=== PATIENT | female | born 1950 | race African-American/Black ===

== ENCOUNTER 2024-04-09 09:51 | Outpatient (AMB) | payer BC, SELFPAY ==
--- NOTE | 2024-04-09 09:54 | MHC.PC.OV ---
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 Stud Master/Mistress Required: No Is last menstrual period known: No Post menopausal: No Patient : No Allergies acetaminophen [From Percocet] Adverse Reaction (Severe, Verified 04/09/24 09:57) Nausea and Vomiting oxycodone [From Percocet] Adverse Reaction (Severe, Verified 04/09/24 09:57) Nausea and Vomiting Tobacco use date assessed: 04/09/24 Fall risk assessment: No Falls in past year Last assessed Fall Risk: 04/09/24 Dental Screening Dental Screen Date: 04/09/24 Did you have a dental visit in the last 12 months?: Yes Did you have a dental problem in the last 6 months where you did not have access to dental care?: No Was dental information given to patient?: Patient has dentist HPI HPI Comments History of Present Illness Details This is a 73-year-old female with a past medical history of hypothyroidism, anxiety, hyperlipidemia, prediabetes, hypertension, morbid obesity and obstructive sleep apnea presenting to [facility]. Prediabetes, obesity-on semaglutide 1 mg once weekly. She tolerates this. She was unable to bring up her last set of labs from September on her phone. She says her A1c was good at that time. She is also cooking her own meals at home. She eats a lot of vegetables and tries to avoid carbs like rice. Hypertension-patient says her blood pressure is always higher in office. Today it is 152/84. She denies symptoms. She is compliant with her medication regimen which includes hydrochlorothiazide, verapamil and losartan. She is a nonsmoker. Patient says she has been diagnosed with a heart murmur, and she had an echocardiogram last year. She remembers being told everything looked okay and to have another echocardiogram in 2-3 years for monitoring. Anxiety-prescribed clonidine 0.1 mg twice daily. She says it helps to alleviate her anxiety. She is not interested in a behavioral health evaluation at this time. Hypothyroidism compliant with levothyroxine 50 mcg daily. JAIMIE-she is very compliant with her CPAP, and she needs a referral to sleep Medicine. Drinks ETOH rarely. She reports being up-to-date with immunizations. She signed a release for her records. She is going to double check with the pharmacy about her COVID-19 vaccine status and tetanus immunization. Dr. Ch is her squilgeer She had a mammogram in June. Patient said she had a colonoscopy last year. ROS: Constitutional: No unexplained weight loss, fever, chills, fatigue or night sweats. Eyes: No vision changes, blurry vision, double vision Respiratory: No shortness of breath, cough or sputum production. Cardiovascular: No chest pain, chest pressure or chest discomfort. No palpitations or pedal edema. Gastrointestinal: No anorexia, nausea, vomiting or diarrhea. No abdominal pain Neurologic: No headache, dizziness, syncope Endocrine: No cold or heat intolerance. No polyuria or polydipsia. Psychiatric: No SI/HI. Physical exam: Constitutional: Alert, in no distress. Head: Normocephalic. Eyes: Pupils are equal, round and reactive to light. Extraocular muscles intact. Neck: Supple, Full range of motion. No lymphadenopathy. Respiratory: Clear to auscultation. Cardiovascular: S1 S2 regular. 2/6 systolic murmur Extremities: Warm and well perfused. No clubbing, cyanosis or edema. Psychiatric: Normal mood and affect [facility] Medical History (Updated 04/09/24 @ 13:47 by DEIRDRE Jain) Heart murmur Hypothyroidism Anxiety Pure hypercholesterolemia Essential hypertension Prediabetes Insulin resistance Morbid obesity JAIMIE (obstructive sleep apnea) Family History (Updated 04/09/24 @ 10:40 by DEIRDRE Jain) Father Alcohol abuse Throat cancer Brother Alcohol abuse Throat cancer Sister Breast cancer Social History Housing: House Patient Tobacco Use Status: Never used Tobacco e-Cigarette/Vaping Use: Never Used service: No Current occupational status: retired Current occupational exposures/hazards: No Cognitive needs: No Hearing needs: No Vision needs: No Questionnaire AUDIT C Alcohol Use Questionnaire (AUDIT-C) 1. How often do you have a drink containing alcohol?: Monthly or less (social drinker) 2. How many drinks containing alcohol do you have on a typical day when you are drinking?: 1 or 2 3. How often do you have six or more drinks on one occasion?: Never Total Score: 1 Score Reviewed/Action Taken: Yes Physical exam (Primary Care) Vital Signs: Last Vital Signs Temp 97.7 F 04/09/24 10:04 Pulse 61 04/09/24 10:04 Resp 16 04/09/24 10:04 BP 152/84 H 04/09/24 10:46 Pulse Ox 94 04/09/24 10:04 Oxygen Delivery Method Room Air 04/09/24 10:04 BMI result Body Mass Index 39.5 Tobacco/Smoking Status: Tobacco use Status Tobacco use date assessed 04/09/24 04/09/24 10:04 Patient Tobacco Use Status Never used Tobacco 04/09/24 10:04 e-Cigarette/Vaping Use Never Used 04/09/24 10:04 Assessment and Plan Assessment & Plan (1) Pure hypercholesterolemia: Code(s): E78.00 - Pure hypercholesterolemia, unspecified (2) Essential hypertension: Code(s): I10 - Essential (primary) hypertension (3) Prediabetes: Code(s): R73.03 - Prediabetes (4) JAIMIE (obstructive sleep apnea): Code(s): G47.33 - Obstructive sleep apnea (adult) (pediatric) (5) Anxiety: Code(s): F41.9 - Anxiety disorder, unspecified (6) Hypothyroidism: Code(s): E03.9 - Hypothyroidism, unspecified Qualifiers: Hypothyroidism type: unspecified Qualified Code(s): E03.9 - Hypothyroidism, unspecified Plan Hypercholesterolemia Continue efforts at weight loss. Recommended low-cholesterol diet and cardiovascular exercise 5 days per week. Check lipid profile. Of note, she says she was on atorvastatin in the past, but she could not tolerate it due to dizziness and body aches. Hypertension She may have a component of office hypertension. She is going to keep a log of the home readings and send them to me over the portal in a few weeks. We will need to adjust her regimen if her blood pressure readings are not at goal. Recommended low-sodium diet and avoidance of caffeine. Prediabetes See above regarding lifestyle modifications. Check hemoglobin A1c. Continue Ozempic. Obstructive sleep apnea Referred to sleep Medicine. Compliant with CPAP. Anxiety Currently well-controlled. Continue current regimen. She will contact me if she wants to speak with a therapist. Hypothyroidism Check TSH. Continue levothyroxine. Follow up in 3 months for HTN and med review. Orders: Orders Lipid Panel Today E78.00 - Pure hypercholesterolemia, unspecified, I10 - Essential (primary) hypertension, R73.03 - Prediabetes Hemoglobin A1c Today E78.00 - Pure hypercholesterolemia, unspecified, I10 - Essential (primary) hypertension, R73.03 - Prediabetes Comprehensive Met. Panel Today E78.00 - Pure hypercholesterolemia, unspecified, I10 - Essential (primary) hypertension, R73.03 - Prediabetes TSH reflex Free T4 Today E03.9 - Hypothyroidism, unspecified, E66.9 - Obesity, unspecified Referrals Sleep Medicine Referral G47.33 - Obstructive sleep apnea (adult) (pediatric) Medications: New semaglutide (Ozempic) 1 mg (0.75 mL) subcut QWEEK 3 mL 5RF Coding Level of Care Code New Pt Level 4 (12420) Complex EM visit Add On G2211 Diagnoses Pure hypercholesterolemia E78.00 Essential hypertension I10 Prediabetes R73.03 JAIMIE (obstructive sleep apnea) G47.33 Anxiety F41.9 Hypothyroidism, unspecified type E03.9 Hypothyroidism type: unspecified
[2024-04-09 10:04] VITALS: BP 160/82; PULSE 61; RESP 16; TEMP 36.5; O2SAT 94; BMI 39.5
[2024-04-09 10:46] VITALS: BP 152/84
== END 2024-04-09 11:00 | disposition home or self-care (01) ==
LOC: HO.HMGFM 09:52
PROVIDERS: PCP Physician Assistant Medical; Visit Provider Physician Assistant Medical
DX: E78.00 Pure hypercholesterolemia, unspecified (principal); I10 Essential (primary) hypertension; R73.03 Prediabetes; G47.33 Obstructive sleep apnea (adult) (pediatric); F41.9 Anxiety disorder, unspecified; E03.9 Hypothyroidism, unspecified
CPT/HCPCS: 99204

== ENCOUNTER 2024-04-10 08:15 | Outpatient (REF) | payer BC, SELFPAY ==
[2024-04-10 11:29] LABS: Estimated Average Glucose 100 mg/dL; Hemoglobin A1c % 5.1 % (<6.0)
[2024-04-10 11:39] LABS: Alanine Aminotransferase 37 U/L (0-31); Albumin Level 4.1 g/dL (3.5-5.0); Alkaline Phosphatase 60 U/L (39-117); Anion Gap 10 (12-20); Aspartate Amino Transferase 21 U/L (5-31); Bilirubin Total 0.4 mg/dL (0.0-1.0); Blood Urea Nitrogen 14 mg/dL (9-16); Calcium 10.3 mg/dL (8.4-10.2); Carbon Dioxide 29 mmol/L (22-29); Chloride 108 mmol/L (96-108); Cholesterol 153 mg/dL (<200); Estimated Glomerular Filt Rate > 60; Glucose Random 91 mg/dL (60-115); HDL Cholesterol 53 mg/dL (>40); LDL Cholesterol Calculated 74 mg/dL (<100); Potassium 4.4 mmol/L (3.3-5.1); Sodium 143 mmol/L (135-145); Triglycerides 133 mg/dL (<150)
[2024-04-10 11:55] LABS: TSH reflex Free T4 2.19 uIU/mL (0.32-4.0)
== END 2024-04-10 08:16 | disposition home or self-care (01) ==
LOC: HO.WFDLDS 08:15
PROVIDERS: Visit Provider Physician Assistant Medical
DX: E78.00 Pure hypercholesterolemia, unspecified (principal); I10 Essential (primary) hypertension; R73.03 Prediabetes; E66.9 Obesity, unspecified; E03.9 Hypothyroidism, unspecified
CPT/HCPCS: 36415; 80053; 80061; 83036; 84443

== ENCOUNTER 2024-07-06 08:30 | Outpatient (AMB) | payer BC, SELFPAY ==
--- NOTE | 2024-07-06 08:38 | MHC.PC.OV ---
Vital Signs 07/06/24 08:40 Height 5 ft 5 in BP 116/80 Blood Pressure Location Rt brachial Position Sitting Pulse 64 Pulse Source Pulse Oximeter Pulse Oximetry (%) 96 Oxygen Delivery Method Room Air Intake Visit Reasons: HTN follow up Intake Note: Follow up htn. 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 Prediabetes, obesity-on semaglutide 1 mg once weekly. She tolerates this. She is also cooking her own meals at home. She eats a lot of vegetables and tries to avoid carbs like rice. Hemoglobin A1c 5.1% 04/10/2024. Hypertension-normotensive today. She did not drink coffee which she says makes a big difference with her blood pressure. She denies symptoms. She is compliant with her medication regimen which includes hydrochlorothiazide, verapamil and losartan. She is a nonsmoker. Patient says she has been diagnosed with a heart murmur, and she had an echocardiogram last year. Records requested. Anxiety-prescribed clonidine 0.1 mg twice daily. She says it helps to alleviate her anxiety. She is not interested in a behavioral health evaluation at this time. Her calcium was mildly elevated in March. She stopped Calcium and will recheck it today. Her liver enzyme was also mildly elevated. No abdominal pain, nausea vomiting or unexplained weight loss. Hypothyroidism compliant with levothyroxine 50 mcg daily. Recent TSH within normal limits. JAIMIE-she is very compliant with her CPAP, and she has an appointment with sleep medicine in July. Drinks ETOH rarely. She reports being up-to-date with immunizations. She received the RSV vaccine, COVID-19 booster and flu vaccine at the pharmacy. 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 Patient has a negative Cologuard in 2022. Ordered. Declines colonscopy. She is due for a bone density exam. She would like this done at [place]. Order placed. ROS: Constitutional: No unexplained weight loss, fever, chills, fatigue or night sweats. Eyes: No vision changes, blurry vision, double vision Respiratory: No shortness of breath, cough or sputum production. Cardiovascular: No chest pain, chest pressure or chest discomfort. No palpitations or pedal edema. Gastrointestinal: No anorexia, nausea, vomiting or diarrhea. No abdominal pain Neurologic: No headache, dizziness, syncope Endocrine: No cold or heat intolerance. No polyuria or polydipsia. Psychiatric: No SI/HI. Physical exam: Constitutional: Alert, in no distress. Head: Normocephalic. Eyes: Pupils are equal, round and reactive to light. Extraocular muscles intact. Neck: Supple, Full range of motion. No lymphadenopathy. Respiratory: Clear to auscultation. Cardiovascular: S1 S2 regular. 2/6 systolic murmur Extremities: Warm and well perfused. No clubbing, cyanosis or edema. Psychiatric: Normal mood and affect [facility] Medical History (Updated 07/06/24 @ 15:21 by DIERDRE Jain) Serum calcium elevated Elevated liver enzymes Heart murmur Hypothyroidism Anxiety Pure hypercholesterolemia Essential hypertension Prediabetes Insulin resistance Morbid obesity JAIMIE (obstructive sleep apnea) Family History Father Alcohol abuse Throat cancer Brother Alcohol abuse Throat cancer Sister Breast cancer Social History (Updated 07/06/24 @ 08:46 by Rima Gutierres CMA) Housing: House Alcohol intake: current Comment: One glass of wine Patient Tobacco Use Status: Never used Tobacco e-Cigarette/Vaping Use: Never Used service: No Current occupational status: retired Current occupational exposures/hazards: No Cognitive needs: No Hearing needs: No Vision needs: No Questionnaire PHQ-9 Over the last 2 weeks, how often have you been bothered by any of the following problems? 1. Little interest or pleasure in doing things: not at all 2. Feeling down, depressed, or hopeless: not at all 3. Trouble falling or staying asleep, or sleeping too much: not at all 4. Feeling tired or having little energy: not at all 5. Poor appetite or overeating: not at all 6. Feeling bad about yourself - or that you are a failure or have let yourself or your family down: not at all 7. Trouble concentrating on things, such as reading the newspaper or watching television: not at all 8. Moving or speaking so slowly that other people could have noticed. Or the opposite - being so fidgety or restless that you have been moving around a lot more than usual: not at all 9. Thoughts that you would be better off or of hurting yourself in some way: not at all Total score: 0 Depression Screening Interpretation: Negative Depression Screening Done: Yes 73229 - PHQ-9 Billing: Yes Source: Developed by Drs. Ernesto East, Silke Mendez, Philip Naranjo and colleagues, with an educational kenn from [employer]. Thrive Questionnaire Date Thrive assessed: 07/06/24 I am a: Patient What is your living situation today?: I have a steady place to live Within the past 12 months, did the food you bought not last and you didn't have the money to get more?: I choose not to answer this question Within the past 12 months, did you worry whether your food would run out before you got money to buy more?: I choose not to answer this question Do you have trouble paying for medicines?: No Do you have trouble getting transportation to medical appointments?: No Do you have trouble paying your heating and electricity bill?: No Do you have trouble taking care of your child, family member or friend?: No Do you have trouble with day-to-day activities such as bathing, preparing meals, shopping, managing finances, etc.?: No Are you currently unemployed and looking for a job?: No Are you interested in more education?: No Please select the resources that you would like help with: None Currently or been in a relationship where the following occur: No concerns reported THRIVE Score: 0 AUDIT C Alcohol Use Questionnaire (AUDIT-C) 2. How many drinks containing alcohol do you have on a typical day when you are drinking?: 1 or 2 Total Score: 0 HUAN-7 AMB Questionnaire HUAN-7 Date HUAN - 7 assessed: 07/06/24 Feeling nervous, anxious, or on edge: 1 = Several days Not being able to stop or control worryin = Several days Worrying too much about different things: 1 = Several days Trouble relaxin = Several days Being so restless that it is hard to sit still: 1 = Several days Becoming easily annoyed or irritable: 1 = Several days Feeling afraid as if something awful might happen: 1 = Several days Total HUAN-7 score (0-4 normal; 5-9 mild; 10-14 moderate; 15-21 severe): 7 Source: Developed by Drs. Ernesto East, Silke Mendez, Philip Naranjo and colleagues, with an educational kenn from [employer]. HUAN-7 Assessment Billing HUAN-7 Assessment Tool: HUAN-7 Assessment 78311 Physical exam (Primary Care) Vital Signs: Last Vital Signs Pulse 64 07/06/24 08:40 BP 116/80 07/06/24 08:40 Pulse Ox 96 07/06/24 08:40 Oxygen Delivery Method Room Air 07/06/24 08:40 Tobacco/Smoking Status: Tobacco use Status Tobacco use date assessed 04/09/24 07/06/24 08:42 Patient Tobacco Use Status Never used Tobacco 07/06/24 08:46 e-Cigarette/Vaping Use Never Used 07/06/24 08:46 PHQ-9: PHQ-9 Score PHQ-9: Total score 0 07/06/24 09:04 Depression Screening Interpretation: Negative Thrive Assessment: Date of Thrive Assessment Date Thrive assessed 07/06/24 07/06/24 08:42 Currently or been in a relationship where the following occur: No concerns reported Coding Level of Care Code Est Pt Level 4 (51380) Complex EM visit Add On G2211 Diagnoses Heart murmur R01.1 Hypothyroidism, unspecified type E03.9 Hypothyroidism type: unspecified Anxiety F41.9 Pure hypercholesterolemia E78.00 Essential hypertension I10 Prediabetes R73.03 Morbid obesity E66.01 JAIMIE (obstructive sleep apnea) G47.33 Elevated liver enzymes R74.8 Serum calcium elevated E83.52 Additional Codes HUAN-7 Assessment Billing - HUAN-7 Assessment Tool: HUAN-7 Assessment 63899 ([id number]) PHQ-9 - 00201 - PHQ-9 Billing: Yes ([id number]) Assessment & Plan Assessment & Plan (1) Heart murmur: Code(s): R01.1 - Cardiac murmur, unspecified Category: Medical Plan: Echocardiogram requested from [facility]. No symptoms. (2) Hypothyroidism: Code(s): E03.9 - Hypothyroidism, unspecified Category: Medical Qualifiers: Hypothyroidism type: unspecified Qualified Code(s): E03.9 - Hypothyroidism, unspecified Plan: TSH normal. Continue levothyroxine. (3) Anxiety: Code(s): F41.9 - Anxiety disorder, unspecified Category: Medical Plan: Stable. Continue clonidine 0.1 mg twice daily. (4) Pure hypercholesterolemia: Code(s): E78.00 - Pure hypercholesterolemia, unspecified Category: Medical Plan: Recent LDL at goal. Recommended Mediterranean diet and exercise to promote weight loss. (5) Essential hypertension: Code(s): I10 - Essential (primary) hypertension Category: Medical Plan: Controlled. Continue current regimen. (6) Prediabetes: Code(s): R73.03 - Prediabetes Category: Medical Plan: A1c at goal. Continue Ozempic and low-carbohydrate diet and avoidance of sugar. (7) Morbid obesity: Code(s): E66.01 - Morbid (severe) obesity due to excess calories Category: Medical (8) JAIMIE (obstructive sleep apnea): Code(s): G47.33 - Obstructive sleep apnea (adult) (pediatric) Category: Medical Plan: Continue CPAP and efforts at weight loss. (9) Elevated liver enzymes: Code(s): R74.8 - Abnormal levels of other serum enzymes Category: Medical Plan: Rechecked. If they remain elevated consider liver ultrasound with elastography. (10) Serum calcium elevated: Code(s): E83.52 - Hypercalcemia Category: Medical Plan: Recheck. If this is still elevated we will need to considered stopping hydrochlorothiazide. Plan Follow up in 6 months for a physical exam. Orders: Orders Hemoglobin A1c Today E88.819 - Insulin resistance, unspecified, R73.03 - Prediabetes XR DEXA axial skeleton Today N95.1 - Menopausal and female climacteric states Referrals Cologuard Test Z12.11 - Encounter for screening for malignant neoplasm of colon, Z12.12 - Encounter for screening for malignant neoplasm of rectum
[2024-07-06 08:40] VITALS: BP 116/80; PULSE 64; O2SAT 96
== END 2024-07-06 09:24 | disposition home or self-care (01) ==
PROVIDERS: PCP Physician Assistant Medical; Visit Provider Physician Assistant Medical
DX: R01.1 Cardiac murmur, unspecified (principal); E03.9 Hypothyroidism, unspecified; E66.01 Morbid (severe) obesity due to excess calories; F41.9 Anxiety disorder, unspecified; E78.00 Pure hypercholesterolemia, unspecified; I10 Essential (primary) hypertension; R73.03 Prediabetes; G47.33 Obstructive sleep apnea (adult) (pediatric); R74.8 Abnormal levels of other serum enzymes; E83.52 Hypercalcemia

== ENCOUNTER → 2024-07-06 08:30 | Outpatient (BNVA) | payer BC, SELFPAY | PROVIDERS: PCP Physician Assistant Medical; Visit Provider Physician Assistant Medical | DX: I10 Essential (primary) hypertension (principal); R01.1 Cardiac murmur, unspecified; E03.9 Hypothyroidism, unspecified; F41.9 Anxiety disorder, unspecified; E78.00 Pure hypercholesterolemia, unspecified; R73.03 Prediabetes; E66.01 Morbid (severe) obesity due to excess calories; G47.33 Obstructive sleep apnea (adult) (pediatric); R74.8 Abnormal levels of other serum enzymes; E83.52 Hypercalcemia; Z79.899 Other long term (current) drug therapy; Z99.89 Dependence on other enabling machines and devices | CPT/HCPCS: 96127 ==

== ENCOUNTER 2024-07-06 09:44 | Outpatient (REF) | payer BC, SELFPAY ==
[2024-07-06 11:28] LABS: Estimated Average Glucose 103 mg/dL; Hemoglobin A1C 120.1355 umol/L; Hemoglobin A1c % 5.2 % (<6.0); Total Hemoglobin (HGBA1C) 3601.8981 umol/L
[2024-07-06 11:34] LABS: Alanine Aminotransferase 44 U/L (0-31); Albumin Level 4.2 g/dL (3.5-5.0); Alkaline Phosphatase 70 U/L (39-117); Aspartate Amino Transferase 24 U/L (5-31); Bilirubin Direct 0.1 mg/dL (0.0-0.5); Bilirubin Total 0.4 mg/dL (0.0-1.0); Calcium 10.6 mg/dL (8.4-10.2); Total Protein 7.1 g/dL (6.5-8.0)
== END 2024-07-06 09:45 | disposition home or self-care (01) ==
LOC: HO.WFDLDS 09:44
PROVIDERS: Visit Provider Physician Assistant Medical
DX: R74.8 Abnormal levels of other serum enzymes (principal); E83.52 Hypercalcemia; E88.819 Insulin resistance, unspecified
CPT/HCPCS: 36415; 80076; 82310; 83036

== ENCOUNTER 2024-07-22 09:48 | Outpatient (REF) | payer MEDICARE, SELFPAY | END 2024-07-22 09:49 | disposition home or self-care (01) | LOC: HO.US 09:48 | PROVIDERS: PCP Physician Assistant Medical; Visit Provider Physician Assistant Medical | DX: R74.8 Abnormal levels of other serum enzymes (principal) | CPT/HCPCS: 76705; 76981 ==

== ENCOUNTER → 2024-07-22 09:50 | Outpatient (BNV) | payer MEDICARE, SELFPAY | PROVIDERS: PCP Physician Assistant Medical; Visit Provider Radiology Diagnostic Radiology | DX: K76.0 Fatty (change of) liver, not elsewhere classified (principal) | CPT/HCPCS: 76705 ==

== ENCOUNTER 2024-07-27 09:38 | Outpatient (AMB) | payer BC, SELFPAY ==
--- NOTE | 2024-07-27 09:43 | MHC.PC.OV ---
Vital Signs 07/27/24 09:46 Height 5 ft 5 in Weight 235 lb BMI 39.1 BP 144/78 H Blood Pressure Location Lt brachial Position Sitting Respiration 14 Pulse 75 Pulse Source Pulse Oximeter Pulse Oximetry (%) 98 Oxygen Delivery Method Room Air Intake Visit Reasons: HTN/high calcium Intake Note: follow up htn and calcium Creel Cleaner Required: No Allergies acetaminophen [From Percocet] Adverse Reaction (Severe, Verified 07/27/24 09:46) Nausea and Vomiting oxycodone [From Percocet] Adverse Reaction (Severe, Verified 07/27/24 09:46) Nausea and Vomiting Tobacco use date assessed: 04/09/24 Dental Screening Dental Screen Date: 04/09/24 HPI HPI Comments History of Present Illness Details This is a 73-year-old female with a past medical history of insulin resistance, class 2 obesity, JAIMIE, prediabetes, hypertension, hyperlipidemia, hypothyroidism, elevated liver enzymes, mild mitral regurgitation presenting for 8 blood pressure follow up. Since her last visit she discontinued hydrochlorothiazide due to hypercalcemia. Her calcium level is to be rechecked today. She increased her water intake. She reported home blood pressure readings were elevated after discontinuing hydrochlorothiazide so her dose of verapamil was increased to 360 mg daily. She is still taking losartan 100 mg daily. She feels much better on this medicine regimen. She realizes that she was not feeling good when she was taking hydrochlorothiazide. She thinks her anxiety was worse and she just felt like she was in a fog sometimes. She had a mild cold the last few days. She did not take decongestants. She is using saline nasal spray. Her symptoms are better now. No fevers or chills. She still has a has some residual nasal congestion. Her blood pressure today is 144/78. Patient said she was not able to start the increased dose of verapamil right away due to a delay at the pharmacy. She received it a week after I sent the prescription. She is also on clonidine 0.1 mg twice a day which she knows lowest blood pressure, but she uses this for anxiety, too. She was diagnosed with hypertension in her 40s. ROS: Constitutional: No unexplained weight loss, fever or chills. Respiratory: No shortness of breath, cough or sputum production. Cardiovascular: No chest pain or leg swelling Neurologic: No headache, dizziness, syncope Physical exam: Constitutional: Alert, in no distress. Head: Normocephalic. Respiratory: Clear to auscultation. Cardiovascular: S1 S2 regular. 2/6 systolic murmur Extremities: Warm and well perfused. No clubbing, cyanosis or edema. [facility], [facility] Medical History (Updated 07/09/24 @ 08:41 by DEIRDRE Jain) Mild mitral regurgitation Serum calcium elevated Elevated liver enzymes Heart murmur Hypothyroidism Anxiety Pure hypercholesterolemia Essential hypertension Prediabetes Insulin resistance Morbid obesity JAIMIE (obstructive sleep apnea) Family History Father Alcohol abuse Throat cancer Brother Alcohol abuse Throat cancer Sister Breast cancer Social History (Updated 07/06/24 @ 08:46 by Rima Gutierres CMA) Housing: House Alcohol intake: current Comment: One glass of wine Patient Tobacco Use Status: Never used Tobacco e-Cigarette/Vaping Use: Never Used service: No Current occupational status: retired Current occupational exposures/hazards: No Cognitive needs: No Hearing needs: No Vision needs: No Questionnaire PHQ-9 Over the last 2 weeks, how often have you been bothered by any of the following problems? 6. Feeling bad about yourself - or that you are a failure or have let yourself or your family down: not at all [id number] - PHQ-9 Billing: Patient declined-do not bill Source: Developed by Drs. Ernesto East, Silke Mendez, Philip Naranjo and colleagues, with an educational kenn from [employer]. Thrive Questionnaire Date Thrive assessed: 07/27/24 I am a: Patient What is your living situation today?: I have a steady place to live Within the past 12 months, did the food you bought not last and you didn't have the money to get more?: I choose not to answer this question Within the past 12 months, did you worry whether your food would run out before you got money to buy more?: I choose not to answer this question Do you have trouble paying for medicines?: No Do you have trouble getting transportation to medical appointments?: No Do you have trouble paying your heating and electricity bill?: No Do you have trouble taking care of your child, family member or friend?: No Do you have trouble with day-to-day activities such as bathing, preparing meals, shopping, managing finances, etc.?: No Are you currently unemployed and looking for a job?: No Are you interested in more education?: No Please select the resources that you would like help with: None Currently or been in a relationship where the following occur: No concerns reported THRIVE Score: 0 HUAN-7 AMB Questionnaire HUAN-7 Date HUAN - 7 assessed: 07/27/24 Source: Developed by Drs. Ernesto East, Silke Mendez, Philip Naranjo and colleagues, with an educational kenn from [employer]. Physical exam (Primary Care) Vital Signs: Last Vital Signs Pulse 75 07/27/24 09:46 Resp 14 07/27/24 09:46 BP 144/78 H 07/27/24 09:46 Pulse Ox 98 07/27/24 09:46 Oxygen Delivery Method Room Air 07/27/24 09:46 BMI result Body Mass Index 39.1 Tobacco/Smoking Status: Tobacco use Status Tobacco use date assessed 04/09/24 07/27/24 09:45 Patient Tobacco Use Status Never used Tobacco 07/27/24 09:45 e-Cigarette/Vaping Use Never Used 07/27/24 09:45 Thrive Assessment: Date of Thrive Assessment Date Thrive assessed 07/27/24 07/27/24 09:45 Currently or been in a relationship where the following occur: No concerns reported Coding Level of Care Code Est Pt Level 4 (61516) Complex EM visit Add On G2211 Diagnoses Serum calcium elevated E83.52 Essential hypertension I10 Assessment & Plan Assessment & Plan (1) Serum calcium elevated: Code(s): E83.52 - Hypercalcemia Category: Medical Plan: Possibly due to thiazide diuretic use previously. Recheck calcium off medication. (2) Essential hypertension: Code(s): I10 - Essential (primary) hypertension Category: Medical Plan: Continue verapamil ER 360 mg, losartan 100 mg, clonidine 0.1 mg twice daily. She does not want to make further adjustments to her medication regimen today. She would like to continue to monitor home readings for another 2 weeks and submit them over the patient portal. If her blood pressure is not at goal we discussed adjusting her medication regimen. Recommended low-sodium diet and avoidance of caffeine. Continue efforts at weight loss. Plan Follow up in 1 month.
[2024-07-27 09:46] VITALS: BP 144/78; PULSE 75; RESP 14; O2SAT 98; BMI 39.1
== END 2024-07-27 10:22 | disposition home or self-care (01) ==
PROVIDERS: PCP Physician Assistant Medical; Visit Provider Physician Assistant Medical
DX: E83.52 Hypercalcemia (principal); I10 Essential (primary) hypertension

== ENCOUNTER → 2024-07-27 09:38 | Outpatient (BNVA) | payer BC, SELFPAY | PROVIDERS: PCP Physician Assistant Medical; Visit Provider Physician Assistant Medical ==

== ENCOUNTER 2024-07-27 10:47 | Outpatient (REF) | payer BC, SELFPAY | END 2024-07-27 10:48 | disposition home or self-care (01) | LOC: HO.WFDLDS 10:47 | PROVIDERS: Visit Provider Physician Assistant Medical | DX: E83.52 Hypercalcemia (principal) | CPT/HCPCS: 36415; 82310 ==

== ENCOUNTER 2024-08-12 10:22 | Outpatient (REF) | payer MEDICARE, SELFPAY ==
--- NOTE | ~2024-08-12 | MM_ITS ---
EXAMINATION: BONE DENSITOMETRY CLINICAL INDICATION: Menopausal and female climacteric states. COMPARISON: This is the patient's baseline examination. TECHNIQUE: Using a [employer] DXA System (software version: 13.1) manufactured by [employer], dual-energy x-ray absorptiometry was performed of the lumbar spine and left hip. The images are of good technical quality. Summary results are attached. FINDINGS: LEFT FEMUR, NECK: BMD 0.908 g/cm2, Z-score 0.1, T-score -0.9, normal. LEFT FEMUR, TOTAL: BMD 1.012 g/cm2, Z-score 0.8, T-score 0.0, normal. AP SPINE L1-L4: BMD 1.206 g/cm2, Z-score 0.8, T-score 0.2, normal. IDENTIFIED RISK FACTORS: Menopause, thiazide. HISTORY OF FRACTURE: None listed. MEDICATIONS: Vitamin D. MM/XR DEXA axial skeleton IMPRESSION: 1. DIAGNOSIS: Normal bone density based on the lowest T-score value of -0.9 in the femoral neck applying World Health Organization criteria. 2. 10-YEAR FRACTURE RISK PREDICTION, FRAX: According to the guidelines, FRAX calculation should only be performed on patients in the osteopenia bone density category. Therefore, FRAX was not performed on this patient. 3. Treatment Recommendations: NOF guidelines recommend consideration for treatment in postmenopausal women and men age 50 and older presenting with the following: -A hip or vertebral (clinical or morphometric) fracture. -T-score less than or equal to -2.5 at the femoral neck or spine after appropriate evaluation to exclude secondary causes. -Low bone mass at the hip or spine and a 10-year fracture probability by FRAX of greater than or equal to 3% for hip fracture or greater than or equal to 20% for major osteoporotic fracture based on the [place] adapted WHO algorithm. 4. Other Recommendations: All treatment decisions require clinical judgment and consideration of individual patient factors, including patient preferences, comorbidities, previous drug use, risk factors not captured in the FRAX model (e.g. frailty, falls, vitamin D deficiency, increased bone turnover, interval significant decline in bone density) and possible under or overestimation of fracture risk by FRAX. FUTURE SCAN RECOMMENDATION: People with diagnosed cases of osteoporosis or at high risk for fracture should have regular bone mineral density tests. For patients eligible for Medicare, routine testing is allowed once every 2 years. The testing frequency can be increased to one year for patients who have rapidly progressing disease, those who are receiving or discontinuing medical therapy to restore bone mass, or have additional risk factors. Electronically signed by: Aden Hurtado MD 08/12/2024 01:56 PM RICHARD SPENCER
== END 2024-08-12 10:23 | disposition home or self-care (01) ==
LOC: HO.MAMMO 10:22
PROVIDERS: PCP Physician Assistant Medical; Visit Provider Physician Assistant Medical
DX: Z13.820 Encounter for screening for osteoporosis (principal); N95.1 Menopausal and female climacteric states
CPT/HCPCS: 77080

== ENCOUNTER 2024-08-31 11:35 | Outpatient (AMB) | payer BC, SELFPAY ==
--- NOTE | 2024-08-31 11:55 | MHC.PC.OV ---
Vital Signs 08/31/24 12:03 08/31/24 12:08 Height 5 ft 5 in Weight 232 lb 4 oz BMI 38.6 BP 162/86 H 142/78 H Blood Pressure Location Lt brachial Lt brachial Position Sitting Sitting Pulse 67 Pulse Source Pulse Oximeter Pulse Oximetry (%) 96 Oxygen Delivery Method Room Air Intake Visit Reasons: hypertension Intake Note: Hypertension follow up. Woke up today feeling lightheaded. Foundry Technician Required: No Allergies acetaminophen [From Percocet] Adverse Reaction (Severe, Verified 08/31/24 12:02) Nausea and Vomiting oxycodone [From Percocet] Adverse Reaction (Severe, Verified 08/31/24 12:02) Nausea and Vomiting Tobacco use date assessed: 04/09/24 Dental Screening Dental Screen Date: 04/09/24 HPI HPI Comments History of Present Illness Details This is a 73-year-old female with a past medical history of insulin resistance, class 2 obesity, JAIMIE, prediabetes, hypertension, hyperlipidemia, hypothyroidism, elevated liver enzymes, mild mitral regurgitation presenting for a blood pressure follow up. Hypertension-hydrochlorothiazide was discontinued to hypercalcemia. Calcium normalized. She increased her water intake. She increase verapamil to 360 mg daily. She also takes losartan 100 mg daily. She is also on clonidine 0.1 mg twice a day for anxiety, but she knows this is also for blood pressure. Her blood pressure has improved, but it is suboptimal. She was diagnosed with hypertension in her 40s. Anxiety-patient feels like she needs to restart daily medication. She endorses increased anxiety related to her 's health issues. He has cancer and difficult to control diabetes. She wakes up feeling jittery and anxious. She has racing thoughts. It helps when she leaves her house or starts doing projects around her home to keep distracted. She does not feel depressed. She is using her CPAP. She is using her CPAP. ROS: Constitutional: No unexplained weight loss, fever or chills. Respiratory: No shortness of breath, cough or sputum production. Cardiovascular: No chest pain or leg swelling Neurologic: No headache, dizziness, syncope Physical exam: Constitutional: Alert, in no distress. Head: Normocephalic. Respiratory: Clear to auscultation. Cardiovascular: S1 S2 regular. 2/6 systolic murmur Extremities: Warm and well perfused. No clubbing, cyanosis or edema. [facility] Medical History (Updated 08/11/24 @ 12:31 by DEIRDRE Jain) Colon cancer screening Mild mitral regurgitation Serum calcium elevated Elevated liver enzymes Heart murmur Hypothyroidism Anxiety Pure hypercholesterolemia Essential hypertension Prediabetes Insulin resistance Morbid obesity JAIMIE (obstructive sleep apnea) Family History Father Alcohol abuse Throat cancer Brother Alcohol abuse Throat cancer Sister Breast cancer Social History Housing: House Alcohol intake: current Comment: One glass of wine Patient Tobacco Use Status: Never used Tobacco e-Cigarette/Vaping Use: Never Used service: No Current occupational status: retired Current occupational exposures/hazards: No Cognitive needs: No Hearing needs: No Vision needs: No Questionnaire PHQ-9 Over the last 2 weeks, how often have you been bothered by any of the following problems? 1. Little interest or pleasure in doing things: not at all 2. Feeling down, depressed, or hopeless: not at all 3. Trouble falling or staying asleep, or sleeping too much: not at all 4. Feeling tired or having little energy: not at all 5. Poor appetite or overeating: not at all 6. Feeling bad about yourself - or that you are a failure or have let yourself or your family down: not at all 7. Trouble concentrating on things, such as reading the newspaper or watching television: not at all 8. Moving or speaking so slowly that other people could have noticed. Or the opposite - being so fidgety or restless that you have been moving around a lot more than usual: not at all 9. Thoughts that you would be better off or of hurting yourself in some way: not at all Total score: 0 Source: Developed by Drs. Ernesto East, Silke Mendez, Philip Naranjo and colleagues, with an educational kenn from [employer]. Thrive Questionnaire Date Thrive assessed: 06/29/24 I am a: Patient What is your living situation today?: I have a steady place to live Within the past 12 months, did the food you bought not last and you didn't have the money to get more?: Often true Within the past 12 months, did you worry whether your food would run out before you got money to buy more?: Never true Do you have trouble paying for medicines?: No Do you have trouble getting transportation to medical appointments?: No Do you have trouble paying your heating and electricity bill?: No Do you have trouble taking care of your child, family member or friend?: No Do you have trouble with day-to-day activities such as bathing, preparing meals, shopping, managing finances, etc.?: No Are you currently unemployed and looking for a job?: No Are you interested in more education?: No Please select the resources that you would like help with: None Currently or been in a relationship where the following occur: No concerns reported THRIVE Score: 1 AUDIT C Alcohol Use Questionnaire (AUDIT-C) 1. How often do you have a drink containing alcohol?: Monthly or less 2. How many drinks containing alcohol do you have on a typical day when you are drinking?: 1 or 2 3. How often do you have six or more drinks on one occasion?: Never Total Score: 1 HUAN-7 AMB Questionnaire HUAN-7 Date HUAN - 7 assessed: 07/27/24 Feeling nervous, anxious, or on edge: 1 = Several days Not being able to stop or control worryin = Several days Worrying too much about different things: 0 = Not at all Trouble relaxin = Not at all Being so restless that it is hard to sit still: 1 = Several days Becoming easily annoyed or irritable: 0 = Not at all Feeling afraid as if something awful might happen: 1 = Several days Total HUAN-7 score (0-4 normal; 5-9 mild; 10-14 moderate; 15-21 severe): 4 Source: Developed by Drs. Ernesto East, Silke Mendez, Philip Naranjo and colleagues, with an educational kenn from [employer]. Physical exam (Primary Care) Vital Signs: Last Vital Signs Pulse 67 08/31/24 12:03 BP 142/78 H 08/31/24 12:08 Pulse Ox 96 08/31/24 12:03 Oxygen Delivery Method Room Air 08/31/24 12:03 BMI result Body Mass Index 38.6 Tobacco/Smoking Status: Tobacco use Status Tobacco use date assessed 04/09/24 08/31/24 11:56 Patient Tobacco Use Status Never used Tobacco 08/31/24 11:56 e-Cigarette/Vaping Use Never Used 08/31/24 11:56 PHQ-9: PHQ-9 Score PHQ-9: Total score 0 08/31/24 14:08 Thrive Assessment: Date of Thrive Assessment Date Thrive assessed 06/29/24 08/31/24 11:56 Currently or been in a relationship where the following occur: No concerns reported Coding Level of Care Code Est Pt Level 4 (74796) Complex EM visit Add On G2211 Diagnoses Essential hypertension I10 Anxiety F41.9 Assessment & Plan Assessment & Plan (1) Essential hypertension: Code(s): I10 - Essential (primary) hypertension Category: Medical Plan: Continue verapamil ER 360 mg and losartan 100 mg. Patient will change from clonidine immediate release tablets to clonidine patch with the initial dose of 0.2 mg every 24 hours. This will be a steady release of the medication, and we can increase to 0.3 mg every 24 hours if needed. Side effects reviewed with the patient. Patient was provided with typed instructions how to transition from the tablets to the patch. We could consider addition of low-dose beta-cassandra if needed or trial of chlorthalidone (calcium levels would need to be monitored) if hypertension is still uncontrolled. (2) Anxiety: Code(s): F41.9 - Anxiety disorder, unspecified Category: Medical Plan: Trial of sertraline 25 mg daily for 1 week and then increase to 50 mg. Side effects, black box warning and administration reviewed. Patient will call the office if she has any difficulty with the medication. Declines referral to therapy. Plan Follow up in 6 weeks for anxiety and hypertension. Medications: New clonidine 1 patch transdermal QWEEK 4 ea 2RF sertraline (Zoloft) orally daily; Take 1/2 tab at bedtime for 1 week then increase to 1 tab nightly. 90 tabs 0RF
[2024-08-31 12:03] VITALS: BP 162/86; PULSE 67; O2SAT 96; BMI 38.6
[2024-08-31 12:08] VITALS: BP 142/78
== END 2024-08-31 12:44 | disposition home or self-care (01) ==
PROVIDERS: PCP Physician Assistant Medical; Visit Provider Physician Assistant Medical
DX: I10 Essential (primary) hypertension (principal); F41.9 Anxiety disorder, unspecified

== ENCOUNTER → 2024-08-31 11:35 | Outpatient (BNVA) | payer BC, SELFPAY | PROVIDERS: PCP Physician Assistant Medical; Visit Provider Physician Assistant Medical ==

== ENCOUNTER 2024-09-21 11:41 | Outpatient (REF) | payer BC, SELFPAY ==
[2024-09-22 08:19] LABS: Hepatitis A Antibody IgM 0.41 Index (0-0.79); ~Hepatitis A Antibody IgM Nonreactive (Nonreactive)
[2024-09-22 08:33] LABS: HBS Num1 3.11 mIU/mL (0-7.99); HBc Num1 0.13 S/CO (0.00-0.79); HBsAGNum1 0.33 S/CO (0.00-0.99); Hepatitis A Antibody IgM 0.36 Index (0-0.79); Hepatitis B Core Antibody Nonreactive (Nonreactive); Hepatitis B Surface Antigen Negative (Negative); ~HepC Num1 0.07 S/CO (0.00-0.79); ~Hepatitis A Antibody IgM Nonreactive (Nonreactive); ~Hepatitis B Surface Antibody NONREACTIVE (Nonreactive); ~Hepatitis C Antibody Nonreactive (Nonreactive)
== END 2024-09-21 11:42 | disposition home or self-care (01) ==
LOC: HO.WFDLDS 11:41
PROVIDERS: Visit Provider Physician Assistant Medical
DX: R93.2 Abnormal findings on diagnostic imaging of liver and biliary tract (principal)
CPT/HCPCS: 36415; 86704; 86706; 86709; 86803; 87340

== ENCOUNTER 2024-09-28 10:14 | Outpatient (AMB) | payer BC, SELFPAY ==
--- NOTE | 2024-09-28 10:20 | MHC.OFFVIS ---
Vital Signs 09/28/24 10:28 Height 5 ft 5 in Weight 228 lb BMI 37.9 BP 162/88 H Blood Pressure Location Rt brachial Position Sitting Pulse 72 Intake Visit Reasons: Biliary Cyst Intake Note: Patient referred by pcp Marlene Baker, for biliary cyst. Patient c/o: denies nausea, diarrhea. On and off abdominal pain, constipation. US abdomen joseph w elastography: 07-22-2024 Management Engineer Required: No Accompanied by: spouse Agostinho Allergies acetaminophen [From Percocet] Adverse Reaction (Severe, Verified 09/28/24 10:27) Nausea and Vomiting oxycodone [From Percocet] Adverse Reaction (Severe, Verified 09/28/24 10:27) Nausea and Vomiting Medication List - Last Reconciled 09/28/24 by Ruy Hanna MD clonidine 1 patch transdermal QWEEK fluorometholone 0.1% drps ophthalmic (eye) levothyroxine 50 mcg PO DAILY losartan 100 mg PO DAILY red yeast rice 600 mg PO BID semaglutide (Ozempic) 1 mg (0.75 mL) subcut QWEEK sertraline (Zoloft) orally daily; Take 1/2 tab at bedtime for 1 week then increase to 1 tab nightly. verapamil ER 360 mg PO DAILY vitamin B complex 1 cap PO DAILY HPI Comments Details: Patient presents with her . She underwent a liver elastography study and the incidental finding of biliary system was made. Patient was self has no other GI issues or complaints aside from occasional constipation. She is tolerating a diet. She has regular bowel habits. She has never been jaundiced before. No prior abdominal surgeries.. Chart was reviewed and patient evaluate [facility] Medical History Abnormal liver ultrasound Hepatic steatosis Biliary cyst Colon cancer screening Mild mitral regurgitation Serum calcium elevated Elevated liver enzymes Heart murmur Hypothyroidism Anxiety Pure hypercholesterolemia Essential hypertension Prediabetes Insulin resistance Morbid obesity JAIMIE (obstructive sleep apnea) Surgical History (Updated 09/28/24 @ 10:39 by Ruy Hanna MD) Biliary cyst Family History Father Alcohol abuse Throat cancer Brother Alcohol abuse Throat cancer Sister Breast cancer Social History Housing: House Alcohol intake: current Comment: One glass of wine Patient Tobacco Use Status: Never used Tobacco e-Cigarette/Vaping Use: Never Used service: No Current occupational status: retired Current occupational exposures/hazards: No Cognitive needs: No Hearing needs: No Vision needs: No Physical Exam Vital Signs: Last Vital Signs Pulse 72 09/28/24 10:28 BP 162/88 H 09/28/24 10:28 BMI result Body Mass Index 37.9 Eyes Other: Anicteric GI Other: Abdomen corpulent, soft, benign Assessment & Plan Assessment & Plan (1) Biliary cyst: Code(s): K83.5 - Biliary cyst Category: Surgical Plan Patient has incidental finding of biliary cysts which are benign in appearance. Current recommendation is for annual sonographic ultrasound of liver for surveillance. She will see me in 1 year's time proceeded by ultrasound of liver or p.r.n.. All questions answered Orders: Orders US abdomen limited 11 Months K83.5 - Biliary cyst Coding Level of Care Code New Pt Level 4 (33077) Diagnoses Biliary cyst K83.5
[2024-09-28 10:28] VITALS: BP 162/88; PULSE 72; BMI 37.9
== END 2024-09-28 10:35 | disposition home or self-care (01) ==
PROVIDERS: PCP Physician Assistant Medical; Referring Provider Physician Assistant Medical; Visit Provider Surgery
DX: K83.5 Biliary cyst (principal)
CPT/HCPCS: 99204

== ENCOUNTER → 2024-09-28 10:14 | Outpatient (BNVA) | payer BC, SELFPAY | PROVIDERS: PCP Physician Assistant Medical; Referring Provider Physician Assistant Medical; Visit Provider Surgery ==

== ENCOUNTER 2024-10-19 10:31 | Outpatient (AMB) | payer BC, SELFPAY ==
[2024-10-19 11:11] VITALS: BP 138/84; PULSE 67; O2SAT 98; BMI 37.1
--- NOTE | 2024-10-19 11:11 | A.OFFPC_ITS ---
Vital Signs 10/19/24 11:11 Height 5 ft 5 in Weight 223 lb BMI 37.1 BP 138/84 Blood Pressure Location Lt brachial Position Sitting Pulse 67 Pulse Source Pulse Oximeter Pulse Oximetry (%) 98 Oxygen Delivery Method Room Air Intake Visit Reasons: anxiety and HTN recheck Allergies acetaminophen [From Percocet] Adverse Reaction (Severe, Verified 10/19/24 11:11) Nausea and Vomiting oxycodone [From Percocet] Adverse Reaction (Severe, Verified 10/19/24 11:11) Nausea and Vomiting Medication List - Last Reconciled 10/20/24 by DEIRDRE Jain clonidine 1 patch transdermal QWEEK fluorometholone 0.1% drps ophthalmic (eye) levothyroxine 50 mcg PO DAILY losartan 100 mg PO DAILY red yeast rice 600 mg PO BID semaglutide (Ozempic) 1 mg (0.75 mL) subcut QWEEK sertraline (Zoloft) orally daily; Take 1/2 tab at bedtime for 1 week then increase to 1 tab nightly. verapamil ER 360 mg PO DAILY vitamin B complex 1 cap PO DAILY Tobacco use date assessed: 10/19/24 Fall risk assessment: No Falls in past year Last assessed Fall Risk: 10/19/24 Dental Screening Dental Screen Date: 10/19/24 Did you have a dental visit in the last 12 months?: Yes Did you have a dental problem in the last 6 months where you did not have access to dental care?: No Was dental information given to patient?: Patient has dentist HPI HPI Comments History of Present Illness Details This is a 74-year-old female with a past medical history of insulin resistance, class 2 obesity, JAIMIE on CPAP, prediabetes, hypertension, hyperlipidemia, hypothyroidism, elevated liver enzymes, hepatic steatosis and mild mitral regurgitation presenting for evaluation of hypertension and anxiety. Hypertension-hydrochlorothiazide was discontinued to hypercalcemia. Calcium normalized. She increased her water intake. She increased verapamil to 360 mg daily. She also takes losartan 100 mg daily. At her last visit we switched clonidine from 0.1 mg twice daily to a transdermal 0.2 mg patch. Her blood pressure readings at home and today are much better but not yet at goal. She denies side effects on the patch. Anxiety-patient started sertraline 50 mg at her last visit. It is helping. Patient reports no increase agitation and no suicidal thoughts or depression on the medicine. She has been having restless legs symptoms recently, and she thinks it might have started around the same time that she began this medication. She is currently on 5000 IU of vitamin-D 3 daily. She also takes a B complex vitamin. The patient saw general surgery on 09/28/2024 for an incidental finding of a biliary cyst on her recent ultrasound. The plan is to have the ultrasound repeated in 1 year and follow up with General surgery at that time. Patient has been referred to Gastroenterology for evaluation of elevated liver enzymes with the ultrasound showing hepatic steatosis and elastography suggestive of chronic liver disease on 07/22/2024. She is diabetic. She is on Ozempic. She has lost about 20 lb since starting this medicine. Denies history of alcoholism, but she does drink alcohol lightly to moderately. ROS: Constitutional: No unexplained weight loss, fever, chills, fatigue or night sweats. Respiratory: No shortness of breath, cough or sputum production. Cardiovascular: No chest pain, chest pressure or chest discomfort. No palpitations or pedal edema. Skin: No itching or jaundice Psychiatric: No depression or anxiety. No SI/HI. Physical exam: Constitutional: Alert, in no distress. Head: Normocephalic. Respiratory: Clear to auscultation. Cardiovascular: S1 S2 regular. 2/6 systolic murmur Extremities: Warm and well perfused. No clubbing, cyanosis or edema. DP pulses palpable. [facility] Medical History Abnormal liver ultrasound Hepatic steatosis Colon cancer screening Mild mitral regurgitation Serum calcium elevated Elevated liver enzymes Heart murmur Hypothyroidism Anxiety Pure hypercholesterolemia Essential hypertension Prediabetes Insulin resistance Morbid obesity JAIMIE (obstructive sleep apnea) Surgical History Biliary cyst Family History Father Alcohol abuse Throat cancer Brother Alcohol abuse Throat cancer Sister Breast cancer Social History Housing: House Alcohol intake: current Comment: One glass of wine Patient Tobacco Use Status: Never used Tobacco e-Cigarette/Vaping Use: Never Used service: No Current occupational status: retired Current occupational exposures/hazards: No Cognitive needs: No Hearing needs: No Vision needs: No Questionnaire PHQ-9 Over the last 2 weeks, how often have you been bothered by any of the following problems? 1. Little interest or pleasure in doing things: not at all 2. Feeling down, depressed, or hopeless: not at all 3. Trouble falling or staying asleep, or sleeping too much: not at all 4. Feeling tired or having little energy: not at all 5. Poor appetite or overeating: not at all 6. Feeling bad about yourself - or that you are a failure or have let yourself or your family down: not at all 7. Trouble concentrating on things, such as reading the newspaper or watching television: not at all 8. Moving or speaking so slowly that other people could have noticed. Or the opposite - being so fidgety or restless that you have been moving around a lot more than usual: not at all 9. Thoughts that you would be better off or of hurting yourself in some way: not at all Total score: 0 Depression Screening Interpretation: Negative Depression Screening Done: Yes 53408 - PHQ-9 Billing: Yes Source: Developed by Drs. Ernesto East, Silke Mendez, Philip Naranjo and colleagues, with an educational kenn from [employer]. Thrive Questionnaire Date Thrive assessed: 10/19/24 I am a: Patient What is your living situation today?: I have a steady place to live Within the past 12 months, did the food you bought not last and you didn't have the money to get more?: Often true Within the past 12 months, did you worry whether your food would run out before you got money to buy more?: Never true Do you have trouble paying for medicines?: No Do you have trouble getting transportation to medical appointments?: No Do you have trouble paying your heating and electricity bill?: No Do you have trouble taking care of your child, family member or friend?: No Do you have trouble with day-to-day activities such as bathing, preparing meals, shopping, managing finances, etc.?: No Are you currently unemployed and looking for a job?: No Are you interested in more education?: No Please select the resources that you would like help with: None Currently or been in a relationship where the following occur: No concerns reported THRIVE Score: 1 AUDIT C Alcohol Use Questionnaire (AUDIT-C) 1. How often do you have a drink containing alcohol?: Monthly or less 2. How many drinks containing alcohol do you have on a typical day when you are drinking?: 1 or 2 3. How often do you have six or more drinks on one occasion?: Never Total Score: 1 HUAN-7 AMB Questionnaire HUAN-7 Date HUAN - 7 assessed: 10/19/24 Feeling nervous, anxious, or on edge: 1 = Several days Not being able to stop or control worryin = Several days Worrying too much about different things: 0 = Not at all Trouble relaxin = Not at all Being so restless that it is hard to sit still: 1 = Several days Becoming easily annoyed or irritable: 0 = Not at all Feeling afraid as if something awful might happen: 1 = Several days Total HUAN-7 score (0-4 normal; 5-9 mild; 10-14 moderate; 15-21 severe): 4 Source: Developed by Drs. Ernesto East, Silke Mendez, Philip Naranjo and colleagues, with an educational kenn from [employer]. HUAN-7 Assessment Billing HUAN-7 Assessment Tool: HUAN-7 Assessment 05668 Physical exam (Primary Care) Vital Signs: Last Vital Signs Pulse 67 10/19/24 11:11 BP 138/84 10/19/24 11:11 Pulse Ox 98 10/19/24 11:11 Oxygen Delivery Method Room Air 10/19/24 11:11 BMI result Body Mass Index 37.1 Tobacco/Smoking Status: Tobacco use Status Tobacco use date assessed 10/19/24 10/19/24 11:16 Patient Tobacco Use Status Never used Tobacco 10/19/24 11:16 e-Cigarette/Vaping Use Never Used 10/19/24 11:16 PHQ-9: PHQ-9 Score PHQ-9: Total score 0 10/20/24 10:34 Depression Screening Interpretation: Negative Thrive Assessment: Date of Thrive Assessment Date Thrive assessed 10/19/24 10/19/24 11:16 Currently or been in a relationship where the following occur: No concerns reported Coding Level of Care Code Est Pt Level 4 (26474) Complex EM visit Add On G2211 Diagnoses Essential hypertension I10 Anxiety F41.9 Biliary cyst K83.5 Hepatic steatosis K76.0 Additional Codes HUAN-7 Assessment Billing - HUAN-7 Assessment Tool: HUAN-7 Assessment 65612 ([id number]) PHQ-9 - 08298 - PHQ-9 Billing: Yes ([id number]) Assessment & Plan Assessment & Plan (1) Essential hypertension: Code(s): I10 - Essential (primary) hypertension Category: Medical Plan: Continue verapamil ER 360 mg and losartan 100 mg. Increase clonidine patch to 0.3 mg. Monitor for sedation and dizziness. Congratulated on weight loss. Continue low-sodium diet and avoidance of caffeine. (2) Anxiety: Code(s): F41.9 - Anxiety disorder, unspecified Category: Medical Plan: Patient endorses significant improvement on sertraline. She may have restless legs syndrome related to the medication or something else. We will check labs today for underlying causes. If the workup is nondiagnostic then we will consider switching sertraline to a different SSRI. (3) Biliary cyst: Code(s): K83.5 - Biliary cyst Category: Surgical Plan: Appreciate consult with General surgery. She will follow up in 1 year with ultrasound. (4) Hepatic steatosis: Code(s): K76.0 - Fatty (change of) liver, not elsewhere classified Category: Medical Plan: She is on Ozempic. She is actively working on weight loss and lifestyle modifications. Recommended avoidance of alcohol. She will follow up with Gastroenterology. Plan She has a follow up scheduled with me in December, but if we switch her medication she will be asked to follow up in 4-6 weeks. Orders: Orders Complete Blood Count no Diff 10/19/24 G25.81 - Restless legs syndrome IRON PROFILE 10/19/24 G25.81 - Restless legs syndrome Ferritin 10/19/24 G25.81 - Restless legs syndrome TSH reflex Free T4 10/19/24 E03.9 - Hypothyroidism, unspecified, E88.819 - Insulin resistance, unspecified Hemoglobin A1c 10/19/24 E03.9 - Hypothyroidism, unspecified, E11.9 - Type 2 diabetes mellitus without complications, E88.819 - Insulin resistance, unspecified Magnesium 10/19/24 E83.52 - Hypercalcemia, R74.8 - Abnormal levels of other serum enzymes Vitamin B12 02/24/25 G25.81 - Restless legs syndrome, Z91.89 - Other specified personal risk factors, not elsewhere classified Basic Metabolic Panel 10/19/24 G25.81 - Restless legs syndrome Vitamin D 25-OH (D2 and D3) 10/19/24 G25.81 - Restless legs syndrome, M85.80 - Other specified disorders of bone density and structure, unspecified site Referrals Gastroenterology Referral K76.0 - Fatty (change of) liver, not elsewhere classified, R93.2 - Abnormal findings on diagnostic imaging of liver and biliary tract Medications: New clonidine 1 patch transdermal QWEEK 4 ea 3RF cholecalciferol (vitamin D3) (D3-5000) 125 mcg PO DAILY Refilled losartan 100 mg PO DAILY 90 tabs 3RF Discontinued clonidine Discontinued Reason: Doctor's Order 1 patch transdermal QWEEK 4 ea 2RF
== END 2024-10-19 11:56 | disposition home or self-care (01) ==
PROVIDERS: PCP Physician Assistant Medical; Visit Provider Physician Assistant Medical
DX: I10 Essential (primary) hypertension (principal); F41.9 Anxiety disorder, unspecified; K83.5 Biliary cyst; K76.0 Fatty (change of) liver, not elsewhere classified

== ENCOUNTER → 2024-10-19 10:31 | Outpatient (BNVA) | payer BC, SELFPAY | PROVIDERS: PCP Physician Assistant Medical; Visit Provider Physician Assistant Medical | DX: I10 Essential (primary) hypertension (principal); F41.9 Anxiety disorder, unspecified; K83.5 Biliary cyst; K76.0 Fatty (change of) liver, not elsewhere classified; Z79.899 Other long term (current) drug therapy | CPT/HCPCS: 96127 ==

== ENCOUNTER 2024-10-19 12:50 | Outpatient (REF) | payer BC, SELFPAY ==
[2024-10-19 15:02] LABS: Estimated Average Glucose 97 mg/dL; Hemoglobin A1C 114.1473 umol/L; Total Hemoglobin (HGBA1C) 3603.8941 umol/L
[2024-10-19 15:15] LABS: Hematocrit 45.3 % (37.0-47.0); Hemoglobin 13.7 g/dl (12.0-16.0); Mean Corpuscular HGB Conc 30.2 g/dl (31.0-35.0); Mean Corpuscular Hemoglobin 21.1 pg (27.0-33.0); Mean Corpuscular Volume 69.7 fL (80.0-98.0); Mean Platelet Volume 11.9 fL (9.4-12.3); Platelet Count 192 X10*3/uL (160-400); Red Cell Distribution Width 14.9 % (11.0-16.0)
[2024-10-19 15:21] LABS: Anion Gap 10 (12-20); Blood Urea Nitrogen 10 mg/dL (9-16); Calcium 9.7 mg/dL (8.4-10.2); Carbon Dioxide 27 mmol/L (22-29); Chloride 109 mmol/L (96-108); Estimated Glomerular Filt Rate > 60; Glucose Random 90 mg/dL (60-115); Iron 78 mcg/dL (30-160); Magnesium 2.5 mg/dL (1.6-2.6); Percent Iron Saturation 25 % (15-50); Potassium 4.6 mmol/L (3.3-5.1); Sodium 141 mmol/L (135-145); Total Iron Binding Capacity 306 mcg/dL (228-428); Unsaturated Iron Binding 228 ug/dL
[2024-10-19 15:23] LABS: Ferritin 337 ng/mL (10-250); TSH reflex Free T4 1.68 uIU/mL (0.32-4.0)
[2024-10-19 15:31] LABS: Vitamin B12 836 pg/mL (200-900)
[2024-10-22 22:48] LABS: Vitamin D 25-OH, D2 <4 ng/mL; Vitamin D 25-OH, D3 57 ng/mL; Vitamin D 25-OH, Total 57 ng/mL (30-100)
== END 2024-10-19 12:51 | disposition home or self-care (01) ==
LOC: HO.WFDLDS 12:50
PROVIDERS: Visit Provider Physician Assistant Medical
DX: G25.81 Restless legs syndrome (principal); E11.9 Type 2 diabetes mellitus without complications; E03.9 Hypothyroidism, unspecified; E88.819 Insulin resistance, unspecified; E83.52 Hypercalcemia; R74.8 Abnormal levels of other serum enzymes; M85.80 Other specified disorders of bone density and structure, unspecified site; Z91.89 Other specified personal risk factors, not elsewhere classified
CPT/HCPCS: 36415; 80048; 82306; 82607; 82728; 83036; 83540; 83735; 84443; 85027

== ENCOUNTER 2024-11-19 09:29 | Outpatient (AMB) | payer BC, SELFPAY ==
--- NOTE | 2024-11-19 09:45 | A.OFFPC_ITS ---
Vital Signs 11/19/24 09:51 Height 5 ft 5 in Weight 233 lb 2 oz BMI 38.8 BP 142/78 H Blood Pressure Location Rt brachial Position Sitting Respiration 13 Pulse 64 Pulse Source Pulse Oximeter Temp 96.9 F Temp Source Oral Pulse Oximetry (%) 99 Oxygen Delivery Method Room Air Intake Visit Reasons: anxiety med check? 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: No Allergies acetaminophen [From Percocet] Adverse Reaction (Severe, Verified 11/19/24 09:48) Nausea and Vomiting oxycodone [From Percocet] Adverse Reaction (Severe, Verified 11/19/24 09:48) Nausea and Vomiting Tobacco use date assessed: 11/19/24 Fall risk assessment: No Falls in past year Last assessed Fall Risk: 11/19/24 Dental Screening Dental Screen Date: 11/19/24 Did you have a dental visit in the last 12 months?: Yes Did you have a dental problem in the last 6 months where you did not have access to dental care?: No Was dental information given to patient?: Patient has dentist HPI HPI Comments History of Present Illness Details This is a 74-year-old female with a past medical history of insulin resistance, class 2 obesity, JAIMIE on CPAP, prediabetes, hypertension, hyperlipidemia, hypothyroidism, elevated liver enzymes, hepatic steatosis and mild mitral regurgitation presenting for evaluation of hypertension and anxiety. Hypertension-hydrochlorothiazide was discontinued to hypercalcemia. Calcium normalized. She increased her water intake. She increased verapamil to 360 mg daily. She also takes losartan 100 mg daily. At her last visit we switched clonidine from 0.2-0.3 mg patch. Her blood pressure is still a little elevated. Anxiety-she did not tolerate sertraline due to restless legs symptoms. She is on Lexapro 5 mg a day. She is happy to report that the medication is working very well. Anxiety resolved. No side effects. She is currently on 5000 IU of vitamin-D 3 daily. She also takes a B complex vitamin. ROS: Constitutional: No unexplained weight loss, fever, chills, fatigue or night sweats. Respiratory: No shortness of breath, cough or sputum production. Cardiovascular: No chest pain, chest pressure or chest discomfort. No palpitations or pedal edema. Skin: No itching or jaundice Psychiatric: No depression or anxiety. No SI/HI. Physical exam: Constitutional: Alert, in no distress. Head: Normocephalic. Respiratory: Clear to auscultation. Cardiovascular: S1 S2 regular. 2/6 systolic murmur Extremities: Warm and well perfused. No clubbing, cyanosis or edema. DP pulses palpable. [facility]PLACED BY [facility] Medical History (Updated 10/23/24 @ 16:24 by DEIRDRE Jain) Abnormal CBC Abnormal liver ultrasound Hepatic steatosis Colon cancer screening Mild mitral regurgitation Serum calcium elevated Elevated liver enzymes Heart murmur Hypothyroidism Anxiety Pure hypercholesterolemia Essential hypertension Prediabetes Insulin resistance Morbid obesity JAIMIE (obstructive sleep apnea) Surgical History Biliary cyst Family History Father Alcohol abuse Throat cancer Brother Alcohol abuse Throat cancer Sister Breast cancer Social History Housing: House Alcohol intake: current Comment: One glass of wine Patient Tobacco Use Status: Never used Tobacco e-Cigarette/Vaping Use: Never Used service: No Current occupational status: retired Current occupational exposures/hazards: No Cognitive needs: No Hearing needs: No Vision needs: No Questionnaire PHQ-9 Over the last 2 weeks, how often have you been bothered by any of the following problems? 1. Little interest or pleasure in doing things: not at all 2. Feeling down, depressed, or hopeless: not at all 3. Trouble falling or staying asleep, or sleeping too much: not at all 4. Feeling tired or having little energy: not at all 5. Poor appetite or overeating: not at all 6. Feeling bad about yourself - or that you are a failure or have let yourself or your family down: not at all 7. Trouble concentrating on things, such as reading the newspaper or watching television: not at all 8. Moving or speaking so slowly that other people could have noticed. Or the opposite - being so fidgety or restless that you have been moving around a lot more than usual: not at all 9. Thoughts that you would be better off or of hurting yourself in some way: not at all Total score: 0 12250 - PHQ-9 Billing: Yes Source: Developed by Drs. Ernesto L. Cruzito, Philip Falcon and colleagues, with an educational kenn from [employer]. Thrive Questionnaire Date Thrive assessed: 11/19/24 I am a: Patient What is your living situation today?: I have a steady place to live Within the past 12 months, did the food you bought not last and you didn't have the money to get more?: Often true Within the past 12 months, did you worry whether your food would run out before you got money to buy more?: Never true Do you have trouble paying for medicines?: No Do you have trouble getting transportation to medical appointments?: No Do you have trouble paying your heating and electricity bill?: No Do you have trouble taking care of your child, family member or friend?: No Do you have trouble with day-to-day activities such as bathing, preparing meals, shopping, managing finances, etc.?: No Are you currently unemployed and looking for a job?: No Are you interested in more education?: No Please select the resources that you would like help with: None Currently or been in a relationship where the following occur: No concerns reported THRIVE Score: 1 AUDIT C Alcohol Use Questionnaire (AUDIT-C) 1. How often do you have a drink containing alcohol?: Never 3. How often do you have six or more drinks on one occasion?: Never Total Score: 0 HUAN-7 AMB Questionnaire HUAN-7 Date HUAN - 7 assessed: 11/19/24 Feeling nervous, anxious, or on edge: 0 = Not at all Not being able to stop or control worryin = Not at all Worrying too much about different things: 0 = Not at all Trouble relaxin = Not at all Being so restless that it is hard to sit still: 0 = Not at all Becoming easily annoyed or irritable: 0 = Not at all Feeling afraid as if something awful might happen: 0 = Not at all Total HUAN-7 score (0-4 normal; 5-9 mild; 10-14 moderate; 15-21 severe): 0 Source: Developed by Drs. Ernesto East, Philip Falcon and colleagues, with an educational kenn from [employer]. HUAN-7 Assessment Billing HUAN-7 Assessment Tool: HUAN-7 Assessment 56733 Physical exam (Primary Care) Vital Signs: Last Vital Signs Temp 96.9 F 11/19/24 09:51 Pulse 64 11/19/24 09:51 Resp 13 11/19/24 09:51 BP 142/78 H 11/19/24 09:51 Pulse Ox 99 11/19/24 09:51 Oxygen Delivery Method Room Air 11/19/24 09:51 BMI result Body Mass Index 38.8 Tobacco/Smoking Status: Tobacco use Status Tobacco use date assessed 11/19/24 11/19/24 09:50 Patient Tobacco Use Status Never used Tobacco 11/19/24 09:47 e-Cigarette/Vaping Use Never Used 11/19/24 09:47 PHQ-9: PHQ-9 Score PHQ-9: Total score 0 11/19/24 10:29 Thrive Assessment: Date of Thrive Assessment Date Thrive assessed 11/19/24 11/19/24 09:47 Currently or been in a relationship where the following occur: No concerns reported Coding Level of Care Code Est Pt Level 4 (90174) Complex EM visit Add On G2211 Diagnoses Anxiety F41.9 Essential hypertension I10 Additional Codes HUAN-7 Assessment Billing - HUAN-7 Assessment Tool: HUAN-7 Assessment 42367 ([id number]) PHQ-9 - 08529 - PHQ-9 Billing: Yes ([id number]) Assessment & Plan Assessment & Plan (1) Anxiety: Code(s): F41.9 - Anxiety disorder, unspecified Category: Medical Plan: Well-controlled. Continue Lexapro 5 mg daily. (2) Essential hypertension: Code(s): I10 - Essential (primary) hypertension Category: Medical Plan: Suboptimally controlled. Continue verapamil 360 mg and losartan 100 mg. Trial of chlorthalidone 12.5 mg daily. She will return in 2-3 weeks to check BMP. Patient will make sure she is getting potassium in her diet. We will need to monitor calcium since she had hypercalcemia with HCTZ. Recommended exercise to promote weight loss, low-sodium diet and avoiding caffeine. Patient says she does not drink any caffeine. Plan Follow up in 4 weeks. Orders: Orders Basic Metabolic Panel Today I10 - Essential (primary) hypertension Medications: New chlorthalidone 12.5 mg (1/2 x 25 mg) PO DAILY 90 tabs 0RF
[2024-11-19 09:51] VITALS: BP 142/78; PULSE 64; RESP 13; TEMP 36.1; O2SAT 99; BMI 38.8
--- OUTSIDE RECORDS SUMMARY | 2024-11-19 11:23 | XMS_ITS | Patient Health Record ---
Author Organization [facility] Address [address] [facility] [address] [place] [id number] Care Team Providers Care Signal Apprentice Name Role Phone RIVAS CHOPRA PA-C Primary Care Provider Ernesto Oconnell Unavailable [phone] Reason For Referral No Information Plan Of Treatment Next Appt Details Provider Name:Ernesto Buenrostro , 02/23/2025 09:10:00 AM, [address] [facility] [address] [facility], [address], [place], [address], Insurance Providers Payer Name Payer Address Payer Phone Subscriber Number Group Number Insured Name Patient Relationship to Insured Coverage Start Date Coverage End Date [facility] [address] [place] [address] [phone] [id number] LARRY COOK Self - patient is the insured
== END 2024-11-19 10:32 | disposition home or self-care (01) ==
LOC: HO.HMCFM 09:30
PROVIDERS: PCP Physician Assistant Medical; Visit Provider Physician Assistant Medical
DX: F41.9 Anxiety disorder, unspecified (principal); I10 Essential (primary) hypertension

== ENCOUNTER → 2024-11-19 09:29 | Outpatient (BNVA) | payer BC, SELFPAY | PROVIDERS: PCP Physician Assistant Medical; Visit Provider Physician Assistant Medical | DX: E66.812 Obesity, class 2 (principal); G47.33 Obstructive sleep apnea (adult) (pediatric); R73.03 Prediabetes; F41.9 Anxiety disorder, unspecified; I10 Essential (primary) hypertension; E78.5 Hyperlipidemia, unspecified; E03.9 Hypothyroidism, unspecified; Z68.38 Body mass index [BMI] 38.0-38.9, adult; Z99.89 Dependence on other enabling machines and devices | CPT/HCPCS: 96127 ==

== ENCOUNTER 2024-12-18 08:30 | Outpatient (REF) | payer BC, SELFPAY ==
[2024-12-18 10:42] LABS: Anion Gap 14 (12-20); Blood Urea Nitrogen 20 mg/dL (9-16); Carbon Dioxide 25 mmol/L (22-29); Chloride 105 mmol/L (96-108); Estimated Glomerular Filt Rate > 60; Glucose Random 96 mg/dL (60-115); Potassium 3.9 mmol/L (3.3-5.1); Sodium 140 mmol/L (135-145)
== END 2024-12-18 08:31 | disposition home or self-care (01) ==
LOC: HO.WFDLDS 08:30
PROVIDERS: Visit Provider Physician Assistant Medical
DX: I10 Essential (primary) hypertension (principal)
CPT/HCPCS: 36415; 80048

== ENCOUNTER 2024-12-24 14:49 | Outpatient (AMB) | payer BC, SELFPAY ==
--- NOTE | 2024-12-24 15:17 | A.OFFPC_ITS ---
Vital Signs 12/24/24 15:23 12/24/24 16:00 Height 5 ft 5 in Weight 229 lb 2 oz BMI 38.1 BP 138/88 128/80 Blood Pressure Location Rt brachial Position Sitting Respiration 14 Pulse 78 Pulse Source Pulse Oximeter Temp 98.6 F Temp Source Temporal Artery Scan Pulse Oximetry (%) 97 Oxygen Delivery Method Room Air Intake Visit Reasons: hypertension Intake Note: Ora presents in the office today for a follow up to hypertension. Allergies acetaminophen [From Percocet] Adverse Reaction (Severe, Verified 12/24/24 15:20) Nausea and Vomiting oxycodone [From Percocet] Adverse Reaction (Severe, Verified 12/24/24 15:20) Nausea and Vomiting Tobacco use date assessed: 12/24/24 Fall risk assessment: No Falls in past year Last assessed Fall Risk: 12/24/24 Dental Screening Dental Screen Date: 12/24/24 Did you have a dental visit in the last 12 months?: Yes Did you have a dental problem in the last 6 months where you did not have access to dental care?: No Was dental information given to patient?: Patient has dentist HPI HPI Comments History of Present Illness Details 74-year-old female with a past medical h istory of hepatic steatosis, biliary cyst, mild mitral regurgitation, hypothyroidism, hyperlipidemia, hypertension, prediabetes, obstructive sleep apnea and obesity presents for a blood pressure check. Hypertension-taking chlorthalidone 12.5 mg daily, clonidine 0.3 mg per 24 hour weekly transdermal patch, losartan 100 mg daily and verapamil extended release 360 mg daily. We added chlorthalidone at her last appointment. Her blood pressure readings at home and in office have improve. Today blood pressure is 128/80 upon rechecking. She denies side effects, and her calcium level has remained normal as well as her kidney function. Her anxiety is still well managed on Lexapro 5 mg a day. She did not tolerate sertraline. She is exercising more and has lost some weight. She is cooking every day. She does report this week having a recurrence of the right buttock pain that radiates down her leg when she presses on it. She injured this area a year ago when she bumped against a counter top. There was initially a lot of swelling and bruising which resolved with supportive care. She thinks she re-injured it by doing more cleaning and lifting around her home. She is using heat in a topical cream for pain that is [id number]. There is no numbness, tingling or weakness associated with it. No fevers or chills. No recent trauma. ROS: Constitutional: No unexplained weight loss, fever, chills, fatigue or night sweats. Respiratory: No shortness of breath Cardiovascular: No chest pain Gastrointestinal: No anorexia, nausea, vomiting or diarrhea. No abdominal pain Genitourinary: No dysuria, hematuria, urinary frequency. Physical exam: Constitutional: Alert, in no distress. Head: Normocephalic. Eyes: Pupils are equal, round and reactive to light. Extraocular muscles intact. Neck: Supple, Full range of motion. No lymphadenopathy. No palpable thyroid masses. Respiratory: Clear to auscultation. Cardiovascular: S1 S2 regular. II/ systolic murmur. Musculoskeletal: Patient has tenderness in the right sciatic notch which causes a shooting pain down the back of her leg when palpated. She has full range of motion of her back and lower extremities. Negative straight leg raise bilaterally. No weakness in the lower extremities or footdrop. Sensation of the lower extremities is intact bilaterally. Patellar reflexes are intact. No midline spinal tenderness. Extremities: Warm and well perfused. No clubbing, cyanosis or edema. Psychiatric: Normal mood and affect [facility] Medical History (Updated 12/24/24 @ 17:01 by DEIRDRE Jain) Right sciatic notch pain Abnormal CBC Abnormal liver ultrasound Hepatic steatosis Colon cancer screening Mild mitral regurgitation Serum calcium elevated Elevated liver enzymes Heart murmur Hypothyroidism Anxiety Pure hypercholesterolemia Essential hypertension Prediabetes Insulin resistance Morbid obesity JAIMIE (obstructive sleep apnea) Surgical History Biliary cyst Family History Father Alcohol abuse Throat cancer Brother Alcohol abuse Throat cancer Sister Breast cancer Social History (Updated 12/24/24 @ 15:23 by Alley Hein MA) Housing: House Alcohol intake: current Comment: One glass of wine Patient Tobacco Use Status: Never used Tobacco e-Cigarette/Vaping Use: Never Used Use of substances other than those prescribed or required for medical reasons: No service: No Current occupational status: retired Current occupational exposures/hazards: No Cognitive needs: No Hearing needs: No Vision needs: No Questionnaire Thrive Questionnaire Date Thrive assessed: 12/24/24 I am a: Patient What is your living situation today?: I have a steady place to live Within the past 12 months, did the food you bought not last and you didn't have the money to get more?: Often true Within the past 12 months, did you worry whether your food would run out before you got money to buy more?: Never true Do you have trouble paying for medicines?: No Do you have trouble getting transportation to medical appointments?: No Do you have trouble paying your heating and electricity bill?: No Do you have trouble taking care of your child, family member or friend?: No Do you have trouble with day-to-day activities such as bathing, preparing meals, shopping, managing finances, etc.?: No Are you currently unemployed and looking for a job?: No Are you interested in more education?: No Please select the resources that you would like help with: None Currently or been in a relationship where the following occur: No concerns reported THRIVE Score: 1 AUDIT C Alcohol Use Questionnaire (AUDIT-C) 1. How often do you have a drink containing alcohol?: Monthly or less 2. How many drinks containing alcohol do you have on a typical day when you are drinking?: 1 or 2 3. How often do you have six or more drinks on one occasion?: Never Total Score: 1 Score Reviewed/Action Taken: No HUAN-7 AMB Questionnaire HUAN-7 Date HUAN - 7 assessed: 12/24/24 Source: Developed by Drs. Ernesto East, Silke Mendez, Philip Naranjo and colleagues, with an educational kenn from [employer]. Physical exam (Primary Care) Vital Signs: Last Vital Signs Temp 98.6 F 12/24/24 15:23 Pulse 78 12/24/24 15:23 Resp 14 12/24/24 15:23 BP 128/80 12/24/24 16:00 Pulse Ox 97 12/24/24 15:23 Oxygen Delivery Method Room Air 12/24/24 15:23 BMI result Body Mass Index 38.1 Tobacco/Smoking Status: Tobacco use Status Tobacco use date assessed 12/24/24 12/24/24 15:27 Patient Tobacco Use Status Never used Tobacco 12/24/24 15:23 e-Cigarette/Vaping Use Never Used 12/24/24 15:23 Thrive Assessment: Date of Thrive Assessment Date Thrive assessed 12/24/24 12/24/24 15:27 Currently or been in a relationship where the following occur: No concerns reported Coding Level of Care Code Est Pt Level 4 (35761) Complex EM visit Add On G2211 Diagnoses Anxiety F41.9 Essential hypertension I10 Morbid obesity E66.01 Right sciatic notch pain M54.31 Assessment & Plan Assessment & Plan (1) Anxiety: Code(s): F41.9 - Anxiety disorder, unspecified Category: Medical Plan: She is doing well. Continue Lexapro 5 mg daily. (2) Essential hypertension: Code(s): I10 - Essential (primary) hypertension Category: Medical Plan: Blood pressure well-controlled now. Continue current regimen. Recommended weight loss and low-sodium diet. Avoid caffeine. (3) Morbid obesity: Code(s): E66.01 - Morbid (severe) obesity due to excess calories Category: Medical Plan: Congratulated on interval weight loss. Continue lifestyle modifications and Ozempic. (4) Right sciatic notch pain: Code(s): M54.31 - Sciatica, right side Category: Medical Plan: She would like to try conservative treatment. Alternate with he and ice. I re viewed home stretches and prescribed a short course of meloxicam. Side effects of this medication were reviewed with the patient. Do not take with other NSAIDs. Plan She has a physical exam scheduled with me in December. Medications: New meloxicam 7.5 mg PO DAILY 7 tabs 0RF
[2024-12-24 15:23] VITALS: BP 138/88; PULSE 78; RESP 14; TEMP 37; O2SAT 97; BMI 38.1
[2024-12-24 16:00] VITALS: BP 128/80
== END 2024-12-24 16:04 | disposition home or self-care (01) ==
LOC: HO.HMCFM 14:50
PROVIDERS: PCP Physician Assistant Medical; Visit Provider Physician Assistant Medical
DX: I10 Essential (primary) hypertension (principal); F41.9 Anxiety disorder, unspecified; E66.01 Morbid (severe) obesity due to excess calories; Z68.38 Body mass index [BMI] 38.0-38.9, adult; M54.31 Sciatica, right side

== ENCOUNTER → 2024-12-25 09:39 | Outpatient (BNV) | payer BC, SELFPAY | PROVIDERS: PCP Physician Assistant Medical; Referring Provider Physician Assistant Medical; Visit Provider Nurse Practitioner Family | DX: R71.8 Other abnormality of red blood cells (principal) | CPT/HCPCS: 99204 ==

== ENCOUNTER 2025-01-04 08:13 | Outpatient (AMB) | payer BC, SELFPAY ==
--- NOTE | 2025-01-04 08:16 | MHC.PC.OV ---
Vital Signs 01/04/25 08:25 01/04/25 08:30 01/04/25 08:54 Height 5 ft 5 in Weight 234 lb BMI 38.9 BP 140/82 H 140/78 H 130/74 Blood Pressure Location Rt brachial Lt brachial Position Sitting Sitting Pulse 64 Pulse Source Pulse Oximeter Temp 97.6 F Temp Source Temporal Artery Scan Pulse Oximetry (%) 97 Oxygen Delivery Method Room Air Intake Visit Reasons: annual exam 30 min Intake Note: Ora presents in the office today for her annual physical. Allergies acetaminophen [From Percocet] Adverse Reaction (Severe, Verified 01/04/25 08:21) Nausea and Vomiting oxycodone [From Percocet] Adverse Reaction (Severe, Verified 01/04/25 08:21) Nausea and Vomiting Medication List - Last Reconciled 01/04/25 by DEIRDRE Jain chlorthalidone 12.5 mg (1/2 x 25 mg) PO DAILY clonidine 1 patch transdermal QWEEK escitalopram oxalate (Lexapro) 5 mg PO DAILY fluorometholone 0.1% 0.1 drps ophthalmic (eye) DAILY levothyroxine 50 mcg PO DAILY losartan 100 mg PO DAILY red yeast rice 600 mg PO BID tirzepatide (Mounjaro) 2.5 mg (0.5 mL) subcut QWEEK verapamil ER 360 mg PO DAILY vitamin B complex 1 cap PO DAILY Tobacco use date assessed: 01/04/25 Fall risk assessment: No Falls in past year Last assessed Fall Risk: 01/04/25 Dental Screening Dental Screen Date: 01/04/25 Did you have a dental visit in the last 12 months?: Yes Did you have a dental problem in the last 6 months where you did not have access to dental care?: No Was dental information given to patient?: Patient has dentist HPI HPI Comments History of Present Illness Details This is a 74-year-old female with a past medical history of insulin resistance, class 2 obesity, JAIMIE on CPAP, prediabetes, hypertension, hyperlipidemia, hypothyroidism, elevated liver enzymes, hepatic steatosis and mild mitral regurgitation presenting for a physical exam. Hypertension-taking chlorthalidone 12.5 mg daily, clonidine 0.3 mg per 24 hour weekly transdermal patch, losartan 100 mg daily and verapamil extended release 360 mg daily. She denies side effects, and her calcium level has remained normal as well as her kidney function. Her anxiety is still well managed on Lexapro 5 mg a day. She did not tolerate sertraline. She is exercising and cooking every day and trying to lose weight, but she is still struggling with obesity. She is taking Ozempic 1 mg weekly. The patient saw general surgery on 09/28/2024 for an incidental finding of a biliary cyst on her recent ultrasound. The plan is to have the ultrasound repeated in 1 year and follow up with General surgery at that time. She has an appointment pending with Gastroenterology for evaluation of elevated liver enzymes and ultrasound showing hepatic steatosis and elastography suggestive of chronic liver disease on 07/22/2024. She is diabetic. She is on Ozempic. Denies history of alcoholism, but she does drink alcohol. Patient is seeing heme oncology for evaluation of possible thalassemia. She had an abnormal CBC with microcytosis and normal red blood cell count. Her daughter has a history of thalassemia. Hypothyroidism compliant with levothyroxine 50 mcg daily. JAIMIE-she is very compliant with her CPAP. She is followed by sleep medicine. She reports being up-to-date with immunizations. 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 She says this is up to date. Patient has a negative Cologuard in 2022. She declines colonoscopy. She had a normal bone density exam July 2024. ROS: Constitutional: No unexplained weight loss, fever, chills, fatigue or night sweats. Eyes: No vision changes, blurry vision, double vision, eye pain, eye redness, eye discharge. ENT: No hearing loss, sneezing, sinus pain or sore throat. + allergic rhinitis. She is using nasal saline spray. Respiratory: No shortness of breath, cough or sputum production. Cardiovascular: No chest pain, chest pressure or chest discomfort. No palpitations or pedal edema. Gastrointestinal: No anorexia, nausea, vomiting or diarrhea. No abdominal pain or blood in stool. Genitourinary: No dysuria, hematuria, urinary frequency. Neurologic: No headache, dizziness, syncope, unilateral weakness, ataxia, numbness or tingling in the extremities. Musculoskeletal: No muscle pain, back pain, joint pain or swelling. Right sciatic notch pain resolved which was treated with meloxicam. Hematologic/Lymphatics: No bleeding or bruising. No painful lymph nodes. Skin: No rash or itching. Endocrine: No cold or heat intolerance. No polyuria or polydipsia. Psychiatric: No depression.. No SI/HI. Physical exam: Constitutional: Alert, in no distress. Head: Normocephalic. Eyes: Pupils are equal, round and reactive to light. Extraocular muscles intact. Ear, Nose and Throat: Canals clear. TMs normal. Normal nasal mucosa. No nasal discharge. No oral lesions. Neck: Supple, Full range of motion. No lymphadenopathy. No palpable thyroid masses. Respiratory: Clear to auscultation. Cardiovascular: S1 S2 regular. 2/6 systolic murmur. No carotid bruits. Gastrointestinal: Abdomen soft, non-tender, non-distended. Normal bowel sounds. No palpable masses. Neurologic: No focal neurological deficits. Symmetric patellar reflexes. Moves all extremities spontaneously. Sensation intact bilaterally. Skin: No rashes Musculoskeletal: No gross deformities. Normal range of motion. Extremities: Warm and well perfused. No clubbing, cyanosis or edema. Intact peripheral pulses bilaterally. Psychiatric: Normal mood and affect [facility] Medical History (Updated 01/04/25 @ 09:01 by DEIRDRE Jain) Routine physical examination Right sciatic notch pain Abnormal CBC Abnormal liver ultrasound Hepatic steatosis Colon cancer screening Mild mitral regurgitation Serum calcium elevated Elevated liver enzymes Heart murmur Hypothyroidism Anxiety Pure hypercholesterolemia Essential hypertension Prediabetes Insulin resistance Morbid obesity JAIMIE (obstructive sleep apnea) Surgical History Biliary cyst Family History Father Alcohol abuse Throat cancer Brother Alcohol abuse Throat cancer Sister Breast cancer Social History (Updated 01/04/25 @ 08:18 by Alley Hein MA) Household Members: Spouse Housing: House Alcohol intake: current Comment: One glass of wine Patient Tobacco Use Status: Never used Tobacco e-Cigarette/Vaping Use: Never Used Second Hand Smoke Exposure: No Use of substances other than those prescribed or required for medical reasons: No service: No Current occupational status: retired Current occupational exposures/hazards: No Cognitive needs: No Hearing needs: No Vision needs: No Questionnaire PHQ-9 Over the last 2 weeks, how often have you been bothered by any of the following problems? 1. Little interest or pleasure in doing things: not at all 2. Feeling down, depressed, or hopeless: not at all 3. Trouble falling or staying asleep, or sleeping too much: not at all 4. Feeling tired or having little energy: not at all 6. Feeling bad about yourself - or that you are a failure or have let yourself or your family down: not at all 7. Trouble concentrating on things, such as reading the newspaper or watching television: not at all 8. Moving or speaking so slowly that other people could have noticed. Or the opposite - being so fidgety or restless that you have been moving around a lot more than usual: not at all 9. Thoughts that you would be better off or of hurting yourself in some way: not at all Depression Screening Interpretation: Negative Depression Screening Done: Yes 46589 - PHQ-9 Billing: Patient declined-do not bill Source: Developed by Drs. Ernesto East, Silke Mendez, Philip Naranjo and colleagues, with an educational kenn from [employer] Thrive Questionnaire Date Thrive assessed: 01/04/25 I am a: Patient What is your living situation today?: I have a steady place to live Within the past 12 months, did the food you bought not last and you didn't have the money to get more?: Often true Within the past 12 months, did you worry whether your food would run out before you got money to buy more?: Never true Do you have trouble paying for medicines?: No Do you have trouble getting transportation to medical appointments?: No Do you have trouble paying your heating and electricity bill?: No Do you have trouble taking care of your child, family member or friend?: No Do you have trouble with day-to-day activities such as bathing, preparing meals, shopping, managing finances, etc.?: No Are you currently unemployed and looking for a job?: No Are you interested in more education?: No Please select the resources that you would like help with: None Currently or been in a relationship where the following occur: No concerns reported THRIVE Score: 1 AUDIT C Alcohol Use Questionnaire (AUDIT-C) 1. How often do you have a drink containing alcohol?: Monthly or less 2. How many drinks containing alcohol do you have on a typical day when you are drinking?: 1 or 2 3. How often do you have six or more drinks on one occasion?: Never Total Score: 1 Score Reviewed/Action Taken: No HUAN-7 AMB Questionnaire HUAN-7 Date HUAN - 7 assessed: 01/04/25 Feeling nervous, anxious, or on edge: 0 = Not at all Not being able to stop or control worryin = Not at all Worrying too much about different things: 0 = Not at all Trouble relaxin = Not at all Being so restless that it is hard to sit still: 0 = Not at all Becoming easily annoyed or irritable: 0 = Not at all Feeling afraid as if something awful might happen: 0 = Not at all Total HUAN-7 score (0-4 normal; 5-9 mild; 10-14 moderate; 15-21 severe): 0 Source: Developed by Drs. Ernesto East, Silke Mendez, Philip Naranjo and colleagues, with an educational kenn from [employer] HUAN-7 Assessment Billing HUAN-7 Assessment Tool: HUAN-7 Assessment 79471 Physical exam (Primary Care) Vital Signs: Last Vital Signs Temp 97.6 F 01/04/25 08:25 Pulse 64 01/04/25 08:25 BP 140/78 H 01/04/25 08:30 Pulse Ox 97 01/04/25 08:25 Oxygen Delivery Method Room Air 01/04/25 08:25 BMI result Body Mass Index 38.9 Tobacco/Smoking Status: Tobacco use Status Tobacco use date assessed 01/04/25 01/04/25 08:20 Patient Tobacco Use Status Never used Tobacco 01/04/25 08:20 e-Cigarette/Vaping Use Never Used 01/04/25 08:20 Depression Screening Interpretation: Negative Thrive Assessment: Date of Thrive Assessment Date Thrive assessed 01/04/25 01/04/25 08:20 Currently or been in a relationship where the following occur: No concerns reported Office Procedures EKG Details: EKG shows sinus bradycardia with heart rate of 54 beats per minute. [id number], Complete Coding Level of Care Code Est Pt Prev Care >65y(91563) Diagnoses Routine physical examination Z00.00 Abnormal CBC R79.89 Abnormal liver ultrasound R93.2 Mild mitral regurgitation I34.0 Hypothyroidism, unspecified type E03.9 Hypothyroidism type: unspecified Anxiety F41.9 Pure hypercholesterolemia E78.00 Essential hypertension I10 Prediabetes R73.03 Insulin resistance E88.819 JAIMIE (obstructive sleep apnea) G47.33 CPT Codes EKG - CPT: 07758-[id number], Complete ([id number]) Additional Codes HUAN-7 Assessment Billing - HUAN-7 Assessment Tool: HUAN-7 Assessment 68804 ([id number]) Assessment & Plan Assessment & Plan (1) Routine physical examination: Code(s): Z00.00 - Encounter for general adult medical examination without abnormal findings Category: Medical Plan: Patient is seen today for a routine physical. As part of this visit we reviewed the following issues, which are considered and essential part of preventative health in this age group: - Breast Cancer screening - Annual Rooming House Keeper exam - Screening for colon cancer - Osteoporosis prevention including calcium/vitamin D intake, weight bearing exercise & smoking cessation - Nutritional and exercise counseling - Counseling of injury prevention including fire prevention, smoke alarms and seat belt usage - Screening for depression - Prevention of and/or testing for infectious diseases - Education about skin cancer - Recommendations about immunizations - Recommendation of an eye exam - Screening for substance abuse (2) Abnormal CBC: Code(s): R79.89 - Other specified abnormal findings of blood chemistry Category: Medical Plan: Continue evaluation with Hematology. (3) Abnormal liver ultrasound: Code(s): R93.2 - Abnormal findings on diagnostic imaging of liver and biliary tract Category: Medical Plan: Avoid alcohol. Continue low-cholesterol diet and efforts at weight loss. She has an appointment with Gastroenterology. (4) Mild mitral regurgitation: Code(s): I34.0 - Nonrheumatic mitral (valve) insufficiency Category: Medical Plan: Check echocardiogram. (5) Hypothyroidism: Code(s): E03.9 - Hypothyroidism, unspecified Category: Medical Qualifiers: Hypothyroidism type: unspecified Qualified Code(s): E03.9 - Hypothyroidism, unspecified Plan: Continue treatment with levothyroxine. (6) Anxiety: Code(s): F41.9 - Anxiety disorder, unspecified Category: Medical Plan: Stable on Lexapro. (7) Pure hypercholesterolemia: Code(s): E78.00 - Pure hypercholesterolemia, unspecified Category: Medical Plan: Last LDL less than 100. Repeat labs in 6 weeks. (8) Essential hypertension: Code(s): I10 - Essential (primary) hypertension Category: Medical Plan: Continue current regimen. Continue efforts at weight loss. Avoid caffeine. Follow low-sodium diet. (9) Prediabetes: Code(s): R73.03 - Prediabetes Category: Medical Plan: Hemoglobin A1c 5%. Low carbohydrate, low sugar diet recommended. Decrease portion sizes. (10) Insulin resistance: Code(s): E88.819 - Insulin resistance, unspecified Category: Medical Plan: Patient has insulin resistance, prediabetes and multiple comorbidities associated with obesity including obstructive sleep apnea, hypertension, hyperlipidemia. Despite ongoing efforts at weight loss with diet and exercise and being on Ozempic she continues to struggle with increased obesity. We will stop Ozempic and try Mounjaro 2.5 mg weekly to start. We discussed the need for titration based on efficacy and response. We reviewed side effects. She denies contraindications to the medication. (11) JAIMIE (obstructive sleep apnea): Code(s): G47.33 - Obstructive sleep apnea (adult) (pediatric) Category: Medical Plan: Continue CPAP. Plan Follow up in 3 months. Orders: Orders Lipid Panel 6 Weeks E78.00 - Pure hypercholesterolemia, unspecified, E78.5 - Hyperlipidemia, unspecified, I10 - Essential (primary) hypertension, R73.03 - Prediabetes Microalbumin, Random (w Creat) 6 Weeks E11.9 - Type 2 diabetes mellitus without complications, E78.00 - Pure hypercholesterolemia, unspecified, I10 - Essential (primary) hypertension, R73.03 - Prediabetes Basic Metabolic Panel 6 Weeks E78.00 - Pure hypercholesterolemia, unspecified, I10 - Essential (primary) hypertension, R73.03 - Prediabetes AMB EKG-In Office Today R01.1 - Cardiac murmur, unspecified Hemoglobin A1c 6 Weeks E11.9 - Type 2 diabetes mellitus without complications, E78.00 - Pure hypercholesterolemia, unspecified, I10 - Essential (primary) hypertension, R73.03 - Prediabetes CA echo transthoracic complete Today R01.1 - Cardiac murmur, unspecified Medications: New tirzepatide (Mounjaro) for 4 weeks 2.5 mg (0.5 mL) subcut QWEEK 2 mL 0RF Discontinued meloxicam Discontinued Reason: Doctor's Order 7.5 mg PO DAILY 7 tabs 0RF
[2025-01-04 08:25] VITALS: BP 140/82; PULSE 64; TEMP 36.4; O2SAT 97; BMI 38.9
[2025-01-04 08:30] VITALS: BP 140/78
[2025-01-04 08:54] VITALS: BP 130/74
== END 2025-01-04 09:09 | disposition home or self-care (01) ==
LOC: HO.HMCFM 08:14
PROVIDERS: PCP Physician Assistant Medical; Visit Provider Physician Assistant Medical
DX: Z00.00 Encounter for general adult medical examination without abnormal findings (principal); R79.89 Other specified abnormal findings of blood chemistry; R93.2 Abnormal findings on diagnostic imaging of liver and biliary tract; I34.0 Nonrheumatic mitral (valve) insufficiency; E03.9 Hypothyroidism, unspecified; F41.9 Anxiety disorder, unspecified; E78.00 Pure hypercholesterolemia, unspecified; I10 Essential (primary) hypertension; R73.03 Prediabetes; E88.819 Insulin resistance, unspecified; G47.33 Obstructive sleep apnea (adult) (pediatric)

== ENCOUNTER → 2025-01-04 08:13 | Outpatient (BNVA) | payer BC, SELFPAY | PROVIDERS: PCP Physician Assistant Medical; Visit Provider Physician Assistant Medical | DX: Z00.00 Encounter for general adult medical examination without abnormal findings (principal); R79.89 Other specified abnormal findings of blood chemistry; R93.2 Abnormal findings on diagnostic imaging of liver and biliary tract; I34.0 Nonrheumatic mitral (valve) insufficiency; E03.9 Hypothyroidism, unspecified; F41.9 Anxiety disorder, unspecified; E78.00 Pure hypercholesterolemia, unspecified; I10 Essential (primary) hypertension; R73.03 Prediabetes; E88.819 Insulin resistance, unspecified; G47.33 Obstructive sleep apnea (adult) (pediatric); Z79.899 Other long term (current) drug therapy; Z99.89 Dependence on other enabling machines and devices | CPT/HCPCS: 93005; 96127 ==

== ENCOUNTER → 2025-02-04 08:58 | Outpatient (REF) | payer MEDICARE, SELFPAY ==
--- NOTE | 2025-02-04 09:00 | CA_ITS ---
Transthoracic Echocardiogram Patient (Last, First, Middle): Ora Motley S Gender: Female Date of : 1950 Age: 74 Procedure Date: 02/04/2025 Procedure Type: Transthoracic Echocardiogram Location: OP Height: 162.56 cm Weight: 105.24 kg BSA: 2.08 m2 Heart Rate: 62 bpm BP: 140 / 62 mmHg Supervisor Liquefaction: ADOLFO/SOMMER Referring MD: Marlene [facility] [employer] [facility] Administrator: Cruz Monge MD Symptoms: R01.1 - Cardiac murmur, unspecified Study Quality: Adequate ECG Rhythm: Sinus Conclusions: - 1. Hyperdynamic LV ejection fraction of greater than 70% with moderate left ventricular hypertrophy with mid cavitary obliteration without in his significant obstructive physiology 2. Normal cardiac valvular Dopplers 3. No gross pericardial effusion Findings Left Ventricle Normal left ventricular cavity size. There is moderately increased left ventricular wall thickness. The left ventricular systolic function is hyperdynamic. The visually estimated ejection fraction is >70%. Spectral Doppler is indicative of an impaired relaxation filling pattern. E/E prime ratio is between 8 and 15 consistent with indeterminate filling pressures. Right Ventricle Normal right ventricular cavity size and systolic function. Atria The left atrium is mildly dilated. There is no evidence of interatrial shunt. The right atrium is normal in size. Aortic Valve The aortic valve structure and function is likely normal. There is no aortic valve stenosis. There is no aortic valve regurgitation. Mitral Valve There is mild posterior mitral leaflet thickening. There is mild mitral annular calcification. There is trace mitral valve regurgitation. There is no mitral valve stenosis. Pulmonic Valve The pulmonic valve was not well visualized. There is trace pulmonic valve regurgitation. Tricuspid Valve Likely normal tricuspid valve structure and function. Tricuspid regurgitation envelope is inadequate for calculation of right ventricular systolic pressure. Normal right atrial pressure. Great Vessels All visible segments of the aorta are normal in size. The pulmonary artery was not well visualized. There is no dilatation of the ascending aorta measuring 3.40 cm. Venous The inferior vena cava is normal in size and collapses greater than 50% with inspiration. Pericardium/Pleural There is no evidence of pericardial effusion. Prior Study Comparison No prior study available for comparison. Measurements 2D Linear Measurements IVSd: 1.50 0.6-0.9/0.6-1.0 cm LVIDd: 4.17 3.9-5.3/4.2-5.9 cm LVIDd Index: 2.00 2.4-3.2/2.2-3.1 cm/m2 LVIDs: 2.20 2.0-3.6 cm LVPWd: 1.41 0.7-1.1 cm LA Diam: 4.60 2.7-3.8/3.0-4.0 cm LAIDs Index: 2.21 1.5-2.3 cm/m2 LV Mass: 293.68 67-162/88-224 g LV Mass Index: 141.19 43-95/49-115 g/m2 LVOT Diam: 2.10 3.0+(-)1.3 cm 2D Systolic Function EF 4C: 75.00 >55% EF 2C: 72.00 >55% EF BiP: 72.50 >55% Mitral Valve MV Pk E: 0.92 MV PK A: 1.03 MV Decel Time: 294.00 E/A: 0.90 E'Lateral: 7.62 E'Medial: 4.57 E/E' Med: 20.20 E/E' Lat: 12.10 PHT: 86.00 MVA PHT: 2.56 Decel Harrison: 3.14 Aortic Valve AoV Pk Gulshan: 1.57 AoV Mn Gulshan: 1.16 AoV VTI: 0.38 AoV Pk Grad: 10.00 Aov Mn Grad: 6.00 LINDA Cont.VTI: 3.16 LVOT LVOT Pk Gulshan: 1.38 LVOT Mn Gulshan: 1.02 LVOT VTI: 0.34 LVOT Pk Grad: 8.00 LVOT Mn Grad: 5.00 LVOT Diam: 2.10 LVOT Area: 3.46 Diastolic Function MV Pk E: 0.92 MV Pk A: 1.03 E/A: 0.90 E'Medial: 4.57 E/E' Med: 20.20 E' Laterial: 7.62 E/E' Lat: 12.10 Right Ventricle TAPSE (mm): 27.70 TVS' Gulshan: 14.00 Great Vessels Aorta Sinus of Valsalva: 3.60 2.0-3.5 cm Ao Asc: 3.40 2.1-3.4 cm Ao Arch: 3.10 Pulmonary Valve PV Pk Gulshan: 0.94 Peak PV Grad: 4.00 Updated in Other Vendor System with Status of Final Cruz Monge MD electronically signed on 02/05/2025 2:04:04 PM with status of Final
--- OUTSIDE RECORDS SUMMARY | 2025-02-04 09:34 | XMS_ITS | Patient Health Record ---
Author Organization [facility] Address [address] [facility] [address] [place] [address] Care Team Providers Care Associate Professor Of History Name Role Phone RIVAS CHOPRA PA-C Primary Care Provider Ernesto Oconnell Unavailable [phone] Reason For Referral No Information Plan Of Treatment Next Appt Details Provider Name:Ernesto Buenrostro , 02/23/2025 09:10:00 AM, [address] [facility], [address], [place], [address], Insurance Providers Payer Name Payer Address Payer Phone Subscriber Number Group Number Insured Name Patient Relationship to Insured Coverage Start Date Coverage End Date [facility] [address] [place] [address] [phone] [id number] LARRY COOK Self - patient is the insured
== END ==
LOC: HO.CARD 08:58
PROVIDERS: PCP Physician Assistant Medical; Visit Provider Physician Assistant Medical
DX: R01.1 Cardiac murmur, unspecified (principal)
CPT/HCPCS: 93306

== ENCOUNTER → 2025-02-04 09:00 | Outpatient (BNV) | payer MEDICARE, SELFPAY | PROVIDERS: PCP Physician Assistant Medical; Visit Provider Internal Medicine Cardiovascular Disease | DX: I42.2 Other hypertrophic cardiomyopathy (principal); I51.7 Cardiomegaly | CPT/HCPCS: 93306 ==

== ENCOUNTER 2025-02-22 09:30 | Outpatient (REF) | payer MEDICARE, SELFPAY ==
--- OUTSIDE RECORDS SUMMARY | 2025-02-22 09:50 | XMS_ITS | Patient Health Record ---
Author Organization [facility] Address [address] [facility] [address] [place] [address] Care Team Providers Care Administrative Library Assistant Name Role Phone RIVAS CHOPRA PA-C Primary Care Provider Ernesto Oconnell Unavailable [phone] Reason For Referral No Information Plan Of Treatment Next Appt Details Provider Name:Ernesto Buenrostro , 02/23/2025 09:10:00 AM, [address] [facility], [address], [place], [address], Insurance Providers Payer Name Payer Address Payer Phone Subscriber Number Group Number Insured Name Patient Relationship to Insured Coverage Start Date Coverage End Date [facility] [address] [place] [address] [phone] [id number] LARRY COOK Self - patient is the insured
[2025-02-22 11:52] LABS: Estimated Average Glucose 103 mg/dL; Hemoglobin A1c % 5.2 % (<6.0); Total Hemoglobin (HGBA1C) 3378.7861 umol/L
[2025-02-22 12:00] LABS: Creatinine Urine 50.73 mg/dL; Microalbum/Creatinine Ratio Ur 9.8 ug/mg cr (<30)
[2025-02-22 15:05] LABS: Anion Gap 10 (12-20); Blood Urea Nitrogen 16 mg/dL (9-16); Calcium 9.3 mg/dL (8.4-10.2); Carbon Dioxide 28 mmol/L (22-29); Chloride 107 mmol/L (96-108); Cholesterol 157 mg/dL (<200); Estimated Glomerular Filt Rate > 60; Glucose Random 95 mg/dL (60-115); HDL Cholesterol 57 mg/dL (>40); LDL Cholesterol Calculated 80 mg/dL (<100); Sodium 141 mmol/L (135-145); Triglycerides 100 mg/dL (<150)
== END 2025-02-22 09:31 | disposition home or self-care (01) ==
LOC: HO.WFDLDS 09:30
PROVIDERS: Visit Provider Physician Assistant Medical
DX: E11.9 Type 2 diabetes mellitus without complications (principal); E78.00 Pure hypercholesterolemia, unspecified; E78.5 Hyperlipidemia, unspecified; I10 Essential (primary) hypertension
CPT/HCPCS: 36415; 80048; 80061; 82043; 82570; 83036

== ENCOUNTER 2025-04-08 11:52 | Outpatient (AMB) | payer BC, SELFPAY ==
--- NOTE | 2025-04-08 12:15 | A.OFFPC_ITS ---
Vital Signs 04/08/25 12:24 Height 5 ft 5 in Weight 233 lb BMI 38.8 BP 124/68 Blood Pressure Location Lt brachial Position Sitting Respiration 15 Pulse 58 Pulse Source Pulse Oximeter Pulse Oximetry (%) 95 Oxygen Delivery Method Room Air Intake Visit Reasons: med review Intake Note: Ora presents in the office today for a medication review. Allergies acetaminophen (From Percocet) Adverse Reaction (Severe, Verified 04/08/25 12:21) Nausea and Vomiting oxycodone (From Percocet) Adverse Reaction (Severe, Verified 04/08/25 12:21) Nausea and Vomiting Medication List - Last Reconciled 04/09/25 by DEIRDRE Jain chlorthalidone 12.5 mg (1/2 x 25 mg) PO DAILY clonidine 1 patch transdermal QWEEK escitalopram oxalate 5 mg PO DAILY fluorometholone 0.1% 0.1 drps ophthalmic (eye) DAILY levothyroxine 50 mcg PO DAILY losartan 100 mg PO DAILY omega-3 fatty acids 500 mg PO DAILY red yeast rice 600 mg PO BID tirzepatide (Mounjaro) 5 mg (0.5 mL) subcut QWEEK verapamil ER 360 mg PO DAILY vitamin B complex 1 cap PO DAILY Tobacco use date assessed: 04/08/25 Dental Screening Dental Screen Date: 04/08/25 Did you have a dental visit in the last 12 months?: Yes Did you have a dental problem in the last 6 months where you did not have access to dental care?: No Was dental information given to patient?: Patient has dentist HPI HPI Comments History of Present Illness Details This is a 74-year-old female with a past medical history of insulin resistance, class 2 obesity, JAIMIE on CPAP, prediabetes, hypertension, hyperlipidemia, hypothyroidism, elevated liver enzymes, hepatic steatosis and mild mitral regurgitation presenting for follow up. Hypertension-taking chlorthalidone 12.5 mg daily, clonidine 0.3 mg per 24 hour weekly transdermal patch, losartan 100 mg daily and verapamil extended release 360 mg daily. She denies side effects, and her calcium level has remained normal as well as her kidney function. Her anxiety is still well managed on Lexapro 5 mg a day. She did not tolerate sertraline. She is exercising and cooking every day and trying to lose weight, but she is still struggling with obesity. She did not lose weight successfully and Ozempic. Mounjaro prescribed, and her insurance needed additional information. The patient saw general surgery on 09/28/2024 for an incidental finding of a biliary cyst on her recent ultrasound. The plan is to have the ultrasound repeated in 1 year and follow up with General surgery at that time. She saw Gastroenterology for evaluation of elevated liver enzymes an ultrasound showing hepatic steatosis and elastography suggestive of chronic liver disease. She has an appointment scheduled for colonoscopy. She will see cardiology 05/27/25. She had an echocardiogram 02/04/2025 which demonstrated hyperdynamic left ventricular ejection fraction, moderate left ventricular hypertrophy with mid cavitary obliteration with out significant obstructive pathology. Patient seen by Hematology for thalassemia evaluation. Hypothyroidism compliant with levothyroxine 50 mcg daily. JAIMIE-she is very compliant with her CPAP. She is followed by sleep medicine. She reports being up-to-date with immunizations. Dr. Ch is her location and measurement technician She has mammograms done at [facility]. She says this is up to date. Patient had a negative Cologuard in 2022. She had a normal bone density exam July 2024. ROS: Constitutional: No unexplained weight loss, fever, chills, fatigue or night sweats. Eyes: No vision changes, blurry vision, double vision, eye pain, eye redness, eye discharge. Respiratory: No shortness of breath, cough or sputum production. Cardiovascular: No chest pain, chest pressure or chest discomfort. No palpitations or pedal edema.. Neurologic: No headache, dizziness, syncope Physical exam: Constitutional: Alert, in no distress. Head: Normocephalic. Neck: Supple, Full range of motion. No lymphadenopathy. No palpable thyroid masses. Respiratory: Clear to auscultation. Cardiovascular: S1 S2 regular. 2/6 systolic murmur. No carotid bruits. Extremities: Warm and well perfused. No clubbing, cyanosis or edema. Intact p eripheral pulses bilaterally. Stasis dermatitis bilateral lower extremities. Psychiatric: Normal mood and affect [facility] Medical History (Updated 02/09/25 @ 15:26 by DEIRDRE Jain) Abnormal echocardiogram Routine physical examination Right sciatic notch pain Abnormal CBC Abnormal liver ultrasound Hepatic steatosis Colon cancer screening Mild mitral regurgitation Serum calcium elevated Elevated liver enzymes Heart murmur Hypothyroidism Anxiety Pure hypercholesterolemia Essential hypertension Prediabetes Insulin resistance Morbid obesity JAIMIE (obstructive sleep apnea) Surgical History Biliary cyst Family History Father Alcohol abuse Throat cancer Brother Alcohol abuse Throat cancer Sister Breast cancer Social History (Updated 04/08/25 @ 12:24 by Alley Hein MA) Household Members: Spouse Housing: House Alcohol intake: current Comment: One glass of wine Patient Tobacco Use Status: Never used Tobacco e-Cigarette/Vaping Use: Never Used Second Hand Smoke Exposure: No service: No Current occupational status: retired Current occupational exposures/hazards: No Cognitive needs: No Hearing needs: No Vision needs: No Questionnaire Thrive Questionnaire Date Thrive assessed: 08/31/24 I am a: Patient What is your living situation today?: I have a steady place to live Within the past 12 months, did the food you bought not last and you didn't have the money to get more?: Often true Within the past 12 months, did you worry whether your food would run out before you got money to buy more?: Never true Do you have trouble paying for medicines?: No Do you have trouble getting transportation to medical appointments?: No Do you have trouble paying your heating and electricity bill?: No Do you have trouble taking care of your child, family member or friend?: No Do you have trouble with day-to-day activities such as bathing, preparing meals, shopping, managing finances, etc.?: No Are you currently unemployed and looking for a job?: No Are you interested in more education?: No Please select the resources that you would like help with: None Currently or been in a relationship where the following occur: No concerns reported THRIVE Score: 1 HUAN-7 AMB Questionnaire HUAN-7 Date HUAN - 7 assessed: 01/04/25 Source: Developed by Drs. Ernesto East, Silke Mendez, Philip Naranjo and colleagues, with an educational kenn from [employer]. Physical exam (Primary Care) Vital Signs: Last Vital Signs Pulse 58 04/08/25 12:24 Resp 15 04/08/25 12:24 BP 124/68 04/08/25 12:24 Pulse Ox 95 04/08/25 12:24 Oxygen Delivery Method Room Air 04/08/25 12:24 BMI result Body Mass Index 38.8 Tobacco/Smoking Status: Tobacco use Status Tobacco use date assessed 04/08/25 04/08/25 12:28 Patient Tobacco Use Status Never used Tobacco 04/08/25 12:24 e-Cigarette/Vaping Use Never Used 04/08/25 12:24 Thrive Assessment: Date of Thrive Assessment Date Thrive assessed 08/31/24 04/08/25 12:15 Currently or been in a relationship where the following occur: No concerns reported Coding Level of Care Code Est Pt Level 4 (71664) Complex EM visit Add On G2211 Diagnoses Abnormal CBC R79.89 Abnormal liver ultrasound R93.2 Hypothyroidism, unspecified type E03.9 Hypothyroidism type: unspecified Anxiety F41.9 Pure hypercholesterolemia E78.00 Essential hypertension I10 Prediabetes R73.03 Insulin resistance E88.819 JAIMIE (obstructive sleep apnea) G47.33 Abnormal echocardiogram R93.1 Assessment & Plan Assessment & Plan (1) Abnormal CBC: Code(s): R79.89 - Other specified abnormal findings of blood chemistry Category: Medical Plan: Seen by Hematology for thalassemia workup. (2) Abnormal liver ultrasound: Code(s): R93.2 - Abnormal findings on diagnostic imaging of liver and biliary tract Category: Medical Plan: Avoid alcohol. Continue low-cholesterol diet and efforts at weight loss. Evaluated by Gastroenterology. (3) Hypothyroidism: Code(s): E03.9 - Hypothyroidism, unspecified Category: Medical Qualifiers: Hypothyroidism type: unspecified Qualified Code(s): E03.9 - Hypothyroidism, unspecified Plan: Continue treatment with levothyroxine. (4) Anxiety: Code(s): F41.9 - Anxiety disorder, unspecified Category: Medical Plan: Stable on Lexapro. (5) Pure hypercholesterolemia: Code(s): E78.00 - Pure hypercholesterolemia, unspecified Category: Medical Plan: Recommended Mediterranean diet. Avoid smoking. Continue efforts at weight loss. (6) Essential hypertension: Code(s): I10 - Essential (primary) hypertension Category: Medical Plan: Continue current regimen. Continue efforts at weight loss. Avoid caffeine. Follow low-sodium diet. (7) Prediabetes: Code(s): R73.03 - Prediabetes Category: Medical Plan: Hemoglobin A1c 5%. Low carbohydrate, low sugar diet recommended. Decrease portion sizes. (8) Insulin resistance: Code(s): E88.819 - Insulin resistance, unspecified Category: Medical Plan: Patient has insulin resistance, prediabetes and multiple comorbidities associated with obesity including obstructive sleep apnea, hypertension, hyperlipidemia. Despite ongoing efforts at weight loss with diet and exercise and being on Ozempic she continues to struggle with increased obesity. Mounjaro is medically necessary We discussed the need for titration based on efficacy and response. We reviewed side effects. She denies contraindications to the medication. Form will be submitted to insurance. (9) JAIMIE (obstructive sleep apnea): Code(s): G47.33 - Obstructive sleep apnea (adult) (pediatric) Category: Medical Plan: Continue CPAP. (10) Abnormal echocardiogram: Code(s): R93.1 - Abnormal findings on diagnostic imaging of heart and coronary circulation Category: Medical Plan: Consult is scheduled with Cardiology. Plan Follow up in 3 months.
[2025-04-08 12:24] VITALS: BP 124/68; PULSE 58; RESP 15; O2SAT 95; BMI 38.8
--- OUTSIDE RECORDS SUMMARY | 2025-04-08 12:57 | XMS_ITS | Patient Health Record ---
Author Organization [facility] Address [address] [place] [address] Care Team Providers Care Tufting Machine Operator Name Role Phone RIVAS CHOPRA PA-C Primary Care Provider Ernesto Oconnell [phone] Allergies Allergen (clinical drug ingredient) Drug/Non Drug [...] Points 0 Interpretation Negative Section Notes: From [facility] originally Problems Problem Type SNOMED Code ICD Code Onset Dates Problem Status W/U Status Risk Notes Problem Colon cancer screening (901577111) Colon cancer screening (Z12.11) Active confirmed Problem Fatty liver (712403942) Fatty liver (K76.0) Active confirmed Vital Signs Blood pressure diastolic 77 mm Hg 02/23/2025 Height 65 in 02/23/2025 Blood pressure systolic 111 mm Hg 02/23/2025 Weight 237 lbs 02/23/2025 BMI 39.43 kg/m2 02/23/2025 Procedures Procedure Date Ordered Date Performed Result Body Sit e COLONOSCOPY 02/23/2025 N/A Encounters Encounter Location Date Provider Diagnosis [facility] [address] [place] [address] 02/23/2025 Ernesto Buenrostro Colon cancer screening Z12.11 [...] Provider Name:Ernesto Buenrostro , 05/21/2025 11:30:00 AM, [address] [place] [address] , [place], [place], [phone], Insurance Providers Payer Name Payer Address Payer Phone Subscriber Number Group Number Insured Name Patient Relationship to Insured Coverage Start Date Coverage End Date [facility] [address] [place] [address] [id number] ORA COOK Self - patient is the insured Medical (General) History Medical History History ICD Code Hypothyroidism NIDDM Hypertension Heart murmur Fatty liver--normal LFT's in 12/2024 Hypercholesterolemia JAIMIE-cpap Denies CT,CVA,Lung disease,renal disease Thalassemia-sees Dr. Sawant Liver Cysts on 2023 U/S Colon cancer screening Z12.11 Neg colonoscopies in 2002 and 2012, neg. Cologuard in 2021 approx Surgical History Surgery Date(Month/Year) Cataracts bilateral Appendectomy C-spine
== END 2025-04-08 13:37 | disposition home or self-care (01) ==
LOC: HO.HMCFM 11:53
PROVIDERS: PCP Physician Assistant Medical; Visit Provider Physician Assistant Medical
DX: R73.03 Prediabetes (principal); R79.89 Other specified abnormal findings of blood chemistry; R93.2 Abnormal findings on diagnostic imaging of liver and biliary tract; F41.9 Anxiety disorder, unspecified; I10 Essential (primary) hypertension; G47.33 Obstructive sleep apnea (adult) (pediatric); R93.1 Abnormal findings on diagnostic imaging of heart and coronary circulation

== ENCOUNTER 2025-05-21 10:22 | Day surgery (SDC) | payer MEDICARE, SELFPAY ==
--- OUTSIDE RECORDS SUMMARY | 2025-03-30 11:33 | XMS_ITS | Patient Health Record ---
Author Organization [facility] Address [address] [place] [address] Care Team Providers Care Literacy Tutor Name Role Phone RIVAS CHOPRA PA-C Primary Care Provider Ernesto Oconnell [phone] Allergies Allergen (clinical drug ingredient) Drug/Non Drug Allergy documented on EMR Reaction Allergy Type Onset Date Status oxycodone oxyCODONE Unknown Drug Allergy Active acetaminophen Acetaminophen Unknown Drug Allergy Active Reason For Referral No Information Medications Medication SIG (Take, Route, Fr equency, Duration) Notes Start Date End Date Status Losartan Potassium A ctive Fluorometholone Acti ve Levothyroxine Sodium Active cloNIDine Active Escitalopram Oxalate Active Mounjaro 2.5 MG/0.5ML as directed Subcut aneous weekly 02/23/2025 Active Chlorthalidone Activ e Verapamil HCl ER Act erin Vitamin B Complex Ac tive Red Yeast Rice Activ e Tirzepatide Active Social History Tobacco Use: Social History Observation Description Date Details (start date - stop date) Never Smoker NA - NA Tobacco Control (Standard) Question Answer Notes Tobacco use: Nonsmoker AUDIT-C (Standard) Question Answer Notes Did you have a drink containing alcohol in the p ast year? No Points 0 Interpretation Negative Section Notes: From [facility] originally Problems Problem Type SNOMED Code ICD Code Onset Dates Problem Status W/U Status Risk Notes Problem Colon cancer screening (235645098) Colon cancer screening (Z12.11) Active confirmed Problem Fatty liver (572226307) Fatty liver (K76.0) Active confirmed Vital Signs Blood pressure diastolic 77 mm Hg 02/23/2025 Height 65 in 02/23/2025 Blood pressure systolic 111 mm Hg 02/23/2025 Weight 237 lbs 02/23/2025 BMI 39.43 kg/m2 02/23/2025 Procedures Procedure Date Ordered Date Performed Result Body Sit e COLONOSCOPY 02/23/2025 N/A Encounters Encounter Location Date Provider Diagnosis [facility] [address] [place] [address] 02/23/2025 Ernesto Buenrostro Colon cancer screening Z12.11 and Fatty liver K76.0 Assessments Encounter Date Diagnosis (ICD Code) Assessment Notes Treatment Notes Treatment Clinical Notes Section Notes 02/23/2025 Colon cancer screening (ICD-10 - Z12.11) Overall, Ora appears quite well. I did recommend a colonoscopy for further screening purposes given her age, good clinical appearance, her last exam being over 10 years ago, and her last Cologuard test being 2 to 3 years ago. We did review the rationale for that in regard to colon cancer prevention. Full consent has been obtained for this, including risks of bleeding and perforation. The procedure will be done with monitored anesthesia care. She was given the below instructions regarding adjustment of her medications for the procedure. In regard to the fatty liver we did review that in detail. At this point she does not have any signs of liver disease nor any symptoms of liver disease as well. The abdominal ultrasound was otherwise reassuring and does not show any signs of significant liver disease or portal hypertension. We did review risk factors for fatty liver and I advised her of the need to try to lose weight, watch her diet carefully, and keep her diabetes and hypercholesterolemia as well-controlled as possible. I do not think she needs a liver biopsy or any other treatment for the fatty liver at this time. Ora was comfortable with this plan. Thank you again for allowing me to participate in Ora's care. I shall continue to keep you advised of her progress. 02/23/2025 Fatty liver (ICD-10 - K76.0) In regard to the fatty liver you should try to lose weight, watch your diet carefully, and try to maintain good control of your diabetes and cholesterol. You should have periodic liver profiles with your PCP and be referred back to me in that regard if the liver tests begin to rise significantl y. Overall, Ora appears quite well. I did recommend a colonoscopy for further screening purposes given her age, good clinical appearance, her last exam being over 10 years ago, and her last Cologuard test being 2 to 3 years ago. We did review the rationale for that in regard to colon cancer prevention. Full consent has been obtained for this, including risks of bleeding and perforation. The procedure will be done with monitored anesthesia care. She was given the below instructions regarding adjustment of her medications for the procedure. In regard to the fatty liver we did review that in detail. At this point she does not have any signs of liver disease nor any symptoms of liver disease as well. The abdominal ultrasound was otherwise reassuring and does not show any signs of significant liver disease or portal hypertension. We did review risk factors for fatty liver and I advised her of the need to try to lose weight, watch her diet carefully, and keep her diabetes and hypercholesterolemia as well-controlled as possible. I do not think she needs a liver biopsy or any other treatment for the fatty liver at this time. Ora was comfortable with this plan. Thank you again for allowing me to participate in Ora's care. I shall continue to keep you advised of her progress. Plan Of Treatment Pending Test Test Name Order Date COLONOSCOPY 02/23/2025 Next Appt Details Provider Name:Ernesto Buenrostro , 05/21/2025 11:30:00 AM, [address] [place] [address] , [place] [employer], [place], [phone], Insurance Providers Payer Name Payer Address Payer Phone Subscriber Number Group Number Insured Name Patient Relationship to Insured Coverage Start Date Coverage End Date [facility] [address] [place] [address] [id number] ORA COOK Self - patient is the insured Medical (General) History Medical History History ICD Code Hypothyroidism NIDDM Hypertension Heart murmur Fatty liver--normal LFT's in 12/2024 Hypercholesterolemia JAIMIE-cpap Denies [place],CVA,Lung disease,renal disease Thalassemia-sees Dr. Sawant Liver Cysts on 2023 U/S Colon cancer screening Z12.11 Neg colonoscopies in 2002 and 2012, neg. Cologuard in 2021 approx Surgical History Surgery Date(Month/Year) Cataracts bilateral Appendectomy C-spine
--- NOTE | 2025-05-19 12:09 | HO.ANESPROP2 ---
Documented by User: Naila Nava NP 05/19/25 12:16 HPI - Anesthesia Eval Consult details Narrative: 74 yr old female for colonoscopy JAIMIE: on CPAP At December 2024 PCP visit EKG was done due to murmur, h/o mitral valve insufficiency, see below, pt to see cardiology 05/27 --> spoke to pt 05/19/25, no CP/SOB with moderate activity, doing all ADLs without symptoms. Anesthesia Pre-Procedure Meds Is the patient on any of the following meds?: GLP1/DPP4 PMFSH Active Problems Active Problems: All Active Problems Abnormal echocardiogram (Acute) Microcytosis (Acute) Routine physical examination (Acute) Right sciatic notch pain (Acute) Abnormal CBC (Acute) Abnormal liver ultrasound (Acute) Hepatic steatosis (Acute) Biliary cyst (Acute) Colon cancer screening (Acute) Mild mitral regurgitation (Acute) Serum calcium elevated (Acute) Elevated liver enzymes (Acute) Heart murmur (Acute) Hypothyroidism (Acute) Anxiety (Acute) Pure hypercholesterolemia (Acute) Essential hypertension (Acute) Prediabetes (Acute) Insulin resistance (Acute) Morbid obesity (Acute) JAIMIE (obstructive sleep apnea) (Acute) Past Medical History Medical History Biliary cyst Abnormal echocardiogram Routine physical examination Right sciatic notch pain Abnormal CBC Abnormal liver ultrasound Hepatic steatosis Colon cancer screening Mild mitral regurgitation Serum calcium elevated Elevated liver enzymes Heart murmur Hypothyroidism Anxiety Pure hypercholesterolemia Essential hypertension Prediabetes Insulin resistance Morbid obesity JAIMIE (obstructive sleep apnea) Family History Family History Father Alcohol abuse Throat cancer Brother Alcohol abuse Throat cancer Sister Breast cancer Surgical History Surgical History Hx of hand surgery Hx of hand surgery History of carpal tunnel surgery of right wrist H/O colonoscopy Hx of cataract extraction Hx of cervical discectomy Hx of section Hx of appendectomy Social History Social History Household Members: Spouse Housing: House Alcohol intake: current Alcohol intake frequency: holidays/special occasions only Comment: One glass of wine Patient Tobacco Use Status: Never used Tobacco e-Cigarette/Vaping Use: Never Used Second Hand Smoke Exposure: No Use of substances other than those prescribed or required for medical reasons: No Are you DNR?: No Advance Directives: No Advance Directives Information Provided: Yes service: No Current occupational status: retired Current occupational exposures/hazards: No Cognitive needs: No Hearing needs: No Vision needs: No Meds Allergies Allergy/AdvReac Type Severity Reaction Status Date / Time oxycodone (From Percocet) AdvReac Severe Nausea and Verified 05/21/25 10:43 Vomiting Home Medications ?Medication ?Instructions ?Recorded ?Confirmed ?Last Taken ?Type fluorometholone 0.1 % eye 0.1 drp ophthalmic (eye) DAILY 04/09/24 05/19/25 Unknown History drops,suspension vitamin B complex 1 cap PO DAILY 04/09/24 04/09/25 Unknown History red yeast rice 600 mg tablet 600 mg PO BID 07/27/24 05/19/25 Unknown History omega-3 fatty acids 500 mg capsule 500 mg PO DAILY 04/08/25 05/19/25 Unknown History Exam Narrative Narrative: EKG 12/2024 sinus bradycardia, rate 54 ECHO 01/2025 Conclusions: - 1. Hyperdynamic LV ejection fraction of greater than 70% with moderate left ventricular hypertrophy with mid cavitary obliteration without in his significant obstructive physiology 2. Normal cardiac valvular Dopplers 3. No gross pericardial effusion Documented by User: Sandeep Jordan MD 05/21/25 10:56 [facility] Past Medical History Medical History Biliary cyst Abnormal echocardiogram Routine physical examination Right sciatic notch pain Abnormal CBC Abnormal liver ultrasound Hepatic steatosis Colon cancer screening Mild mitral regurgitation Serum calcium elevated Elevated liver enzymes Heart murmur Hypothyroidism Anxiety Pure hypercholesterolemia Essential hypertension Prediabetes Insulin resistance Morbid obesity JAIMIE (obstructive sleep apnea) Functional capacity: independent ambulation Family History Family History Father Alcohol abuse Throat cancer Brother Alcohol abuse Throat cancer Sister Breast cancer Family history of problems with anesthesia: No Surgical History Surgical History Hx of hand surgery Hx of hand surgery History of carpal tunnel surgery of right wrist H/O colonoscopy Hx of cataract extraction Hx of cervical discectomy Hx of section Hx of appendectomy History of Problems with Anesthesia: No Social History Social History Household Members: Spouse Housing: House Alcohol intake: current Alcohol intake frequency: holidays/special occasions only Comment: One glass of wine Patient Tobacco Use Status: Never used Tobacco e-Cigarette/Vaping Use: Never Used Second Hand Smoke Exposure: No Use of substances other than those prescribed or required for medical reasons: No Are you DNR?: No Advance Directives: No Advance Directives Information Provided: Yes service: No Current occupational status: retired Current occupational exposures/hazards: No Cognitive needs: No Hearing needs: No Vision needs: No Meds Allergies Allergy/AdvReac Type Severity Reaction Status Date / Time oxycodone (From Percocet) AdvReac Severe Nausea and Verified 05/21/25 10:43 Vomiting Home Medications ?Medication ?Instructions ?Recorded ?Confirmed ?Last Taken ?Type fluorometholone 0.1 % eye 0.1 drp ophthalmic (eye) DAILY 04/09/24 05/19/25 Unknown History drops,suspension vitamin B complex 1 cap PO DAILY 04/09/24 04/09/25 Unknown History red yeast rice 600 mg tablet 600 mg PO BID 07/27/24 05/19/25 Unknown History omega-3 fatty acids 500 mg capsule 500 mg PO DAILY 04/08/25 05/19/25 Unknown History Exam Exam Date and Time: 05/21/25 Airway Mallampati Class: II TM Dist: >3cm Neck ROM: Full Loose/Missing/Broken Teeth: No Heart: rrr Lungs: cta Other: normal Assessment and Plan Final Anesthetic Review Family History of Problems with Anesthesia: No History of Problems with Anesthesia: No NPO: Yes ASA Class: III (obesity ) Patient Risk: Intermediate Procedure Risk: Low Assessment/Block/Sedation in SS: Assess/Block/Sedation-SS Anesthetic Plan Anesthetic Plan: MAC: Disposition: Standard PACU and Inp. Admit - IMC
[2025-05-19 14:54] VITALS: BMI 39.4
[2025-05-21 10:31] VITALS: BMI 38.9
[2025-05-21 10:55] VITALS: BP 177/71; PULSE 59; RESP 16; TEMP 36.3; O2SAT 97
[2025-05-21] MEDS: Lactated Ringers 1,000 ML 100 ML IVCONT (10:57)
[2025-05-21 11:01] LABS: Glucose, Whole Blood 110 mg/dL (60-115)
[2025-05-21 11:52] VITALS: BP 110/70; PULSE 59; RESP 16; TEMP 36.2; O2SAT 98
--- NOTE | 2025-05-21 11:54 | PM.OP ---
Brief Operative Note Date of Service: 05/21/25 Pre-op diagnosis: Screening Post-op diagnosis: other (Polyp) Procedure: Colonoscopy to the cecum and TI with cold snare polypectomy x 1 Surgeon: Ernesto Buenrostro MD Anesthesia: MAC Was an Take Out Waitress used for this Procedure?: No Estimated blood loss (mL): 2.0 Pathology: other (A. Polyp at 60cm) Condition: stable Disposition: PACU
[2025-05-21 12:07] VITALS: BP 173/81; PULSE 57; RESP 16; TEMP 36.2; O2SAT 97
--- NOTE | 2025-05-21 14:35 | OP_ITS ---
DATE OF SERVICE: 05/21/2025 SURGEON: Ernesto Buenrostro MD INDICATIONS: The patient presents for evaluation of colorectal cancer screening. Full consent has been obtained from her for this, including risks of bleeding and perforation. PREOPERATIVE DIAGNOSIS: Colorectal cancer screening. POSTOPERATIVE DIAGNOSIS: PROCEDURE PERFORMED: Colonoscopy to the cecum and terminal ileum with cold snare polypectomy x1. ESTIMATED BLOOD LOSS: COMPLICATIONS: ANESTHESIA: Medication used, monitored anesthesia care. ASSISTANTS: SPECIMENS: POSTOPERATIVE DIAGNOSES: Colorectal cancer screening, small colon polyp, diverticulosis, and internal hemorrhoids. DESCRIPTION OF PROCEDURE: The patient was placed in the left lateral decubitus position. The digital rectal exam revealed no abnormalities. The Olympus video pediatric colonoscope was entered into the rectum and advanced easily to the cecum. Once in the cecum, I did identify normal-appearing cecal pouch with appendiceal orifice and a normal-appearing ileocecal valve. The terminal ileum was cannulated and appeared normal. The scope was withdrawn back in the colon. The entire cecum and ileocecal valve appeared normal. Scope was slowly withdrawn assessing all mucosal surfaces carefully. Preparation was excellent. At 60 cm was an approximately 5 or 6 mm polyp, which was removed by cold snare polypectomy and recovered by suction. The polypectomy site appeared clean, without any sign of residual polyp nor significant bleeding. I did not visualize any other polyps, colitis, nor angiodysplasia. There was a mild amount of sigmoid diverticulosis. In the rectum, scope was retroflexed visualizing internal hemorrhoids, but no other pathology. The rectal mucosa appeared normal. Scope was straightened and withdrawn from the patient. She tolerated the procedure well and was returned to recovery area in stable condition. IMPRESSION: 1. Small colon polyp. 2. Diverticulosis. 3. Internal hemorrhoids. PLAN: The results of the pathology will be checked. Even if this is a tubular adenoma, I do not think she would need any further screening colonoscopies given the otherwise negative exam and her age. She was advised not to use any aspirin nor NSAIDs for 1 week. She will see me on a p.r.n. basis. MD LITZY Galdamez/DAYLIN / [phone]
== END 2025-05-21 12:37 | disposition home or self-care (01) ==
PROVIDERS: PCP Physician Assistant Medical; Visit Provider Internal Medicine
PROC: 0DJD8ZZ Inspection of Lower Intestinal Tract, Via Natural or Artificial Opening Endoscopic (ICD-10-PCS; CPT 45378; principal; 2025-05-21 11:30)
DX: Z12.11 Encounter for screening for malignant neoplasm of colon (principal); K63.5 Polyp of colon; K57.30 Diverticulosis of large intestine without perforation or abscess without bleeding; K64.8 Other hemorrhoids; K76.0 Fatty (change of) liver, not elsewhere classified; K76.89 Other specified diseases of liver; I10 Essential (primary) hypertension; R01.1 Cardiac murmur, unspecified; E78.00 Pure hypercholesterolemia, unspecified; E03.9 Hypothyroidism, unspecified; E11.9 Type 2 diabetes mellitus without complications; D56.9 Thalassemia, unspecified; G47.33 Obstructive sleep apnea (adult) (pediatric); Z79.85 Long-term (current) use of injectable non-insulin antidiabetic drugs; Z99.89 Dependence on other enabling machines and devices; Z88.5 Allergy status to narcotic agent; Z88.8 Allergy status to other drugs, medicaments and biological substances; Z98.890 Other specified postprocedural states; Z79.899 Other long term (current) drug therapy
CPT/HCPCS: 45385; 82947; 88305; J2003; J2704; J3010

== ENCOUNTER 2025-06-21 10:42 | Outpatient (AMB) | payer MEDICARE, SELFPAY ==
--- OUTSIDE RECORDS SUMMARY | 2025-05-21 07:30 | XMS_ITS ---
Author Organization [facility] Address [address] [place] [id number] Care Team Providers Care Wood Science Professor Name Role Phone RIVAS CHOPRA PA-C Primary Care Provider Ernesto Oconnell [phone] REASON FOR VISIT screening Encounters Encounter Location Date Provider Diagnosis [facility] [place] Out[place] [address] [place] [phone] 05/21/2025 Ernesto Buenrostro Plan Of Treatment No Information Progress Notes * DAVID COOKEDOB:[birth year] (74 yo F)Acc No.[id number]:05/21/2025 COLON WITH MAC Patient: Ruthy WEST LARRY Provider: Cierra Buenrostro MD :1950 A ge:74 Y S ex:Female Date:05/21/2025 Address:[address] [place], [place] [phone] Pcp:RIVAS CHOPRA PA-C Subjective: * Chief Complaints: * 1 . Screening. * Medical History: Objective: * Vitals: Assessment: Plan: * Treatment: * * The named appointment provid er may or may not be the originator of this progress note, and it is not deemed complete until electronically signed by the appointment provider. Sign off status: Pending * Provider: Cierra Buenrostro MD Date: 0 05/21/2025 Generated for Bali ng/Farosalindg/eTransmitting on: 1 01:09 PM EDT
--- NOTE | 2025-06-21 11:00 | MHC.OFFVIS ---
Vital Signs 06/21/25 11:02 Height 5 ft 5 in Weight 240 lb 11.916 oz BMI 40.1 BP 130/70 Blood Pressure Location Rt brachial Position Sitting Pulse 51 Pulse Source Monitor Intake Visit Reasons: CLASSIFICATION COUNSELOR/ ismael Olivia/ abn finding on testing Intake Note: CLASSIFICATION COUNSELOR/ Olivia/ ABD ekg Laundry Operator Required: No Accompanied by: Significant Other Allergies oxycodone (From Percocet) Adverse Reaction (Severe, Verified 05/21/25 10:43) Nausea and Vomiting Medication List - Last Reconciled 06/21/25 by Les Whitman MD chlorthalidone 12.5 mg (1/2 x 25 mg) PO DAILY clonidine 1 patch transdermal QWEEK escitalopram oxalate 5 mg PO DAILY fluorometholone 0.1% 0.1 drps ophthalmic (eye) DAILY levothyroxine 50 mcg PO DAILY losartan 100 mg PO DAILY omega-3 fatty acids 500 mg PO DAILY red yeast rice 600 mg PO BID verapamil ER 360 mg PO DAILY vitamin B complex 1 cap PO DAILY HPI Comments Details: Pleasant 74-year-old lady who is here for 1st office visit. She has background history of hypertension, hepatic steatosis, hypothyroidism, hyperlipidemia, morbid obesity and obstructive sleep apnea on CPAP. She is referred to us for abnormal echocardiography. She had a murmur auscultated previously and was sent for echocardiography which was performed in January 2025. Echocardiography showed hyperdynamic left ventricular function with mid cavity obliteration without any significant obstructive physiology. No cardiac valvular pathology was otherwise noted. She had another echocardiogram in 2022 at [facility] which showed normal LV function without any significant LV mid cavity obstruction. She is active in her household and goes up and downstairs without any chest discomfort shortness of breath. She is denying any recent dizziness or syncopal episodes. She did have some dizziness 1 time when she had sinus infection long time ago. She is on multiple medications but they appeared to be stable chronic meds for her. She was on HCTZ previously and was changed to chlorthalidone. She is on a clonidine patch. [facility] Medical History Biliary cyst Abnormal echocardiogram Routine physical examination Right sciatic notch pain Abnormal CBC Abnormal liver ultrasound Hepatic steatosis Colon cancer screening Mild mitral regurgitation Serum calcium elevated Elevated liver enzymes Heart murmur Hypothyroidism Anxiety Pure hypercholesterolemia Essential hypertension Prediabetes Insulin resistance Morbid obesity JAIMIE (obstructive sleep apnea) Surgical History Hx of hand surgery Hx of hand surgery History of carpal tunnel surgery of right wrist H/O colonoscopy Hx of cataract extraction Hx of cervical discectomy Hx of section Hx of appendectomy Family History Father Alcohol abuse Throat cancer Brother Alcohol abuse Throat cancer Sister Breast cancer Social History Household Members: Spouse Housing: House Alcohol intake: current Alcohol intake frequency: holidays/special occasions only Comment: One glass of wine Patient Tobacco Use Status: Never used Tobacco e-Cigarette/Vaping Use: Never Used Second Hand Smoke Exposure: No service: No Current occupational status: retired Current occupational exposures/hazards: No Cognitive needs: No Hearing needs: No Vision needs: No Review of Systems Const Denies chills, Denies fatigue, Denies fever(s), Denies frequent falls, Denies weakness, Denies weight gain and Denies weight loss ENT Denies dizziness Card Denies chest pain, Denies leg edema, Denies lightheadedness, Denies palpitations, Denies dyspnea, Denies dyspnea on exertion and Denies orthopnea Resp Denies cough, Denies dyspnea and Denies dyspnea on exertion GI Denies bloating and Denies change in bowel habits Musc Denies muscle weakness, Denies numbness and Denies tingling Neuro Denies dizziness, Denies frequent falls, Denies numbness, Denies tingling and Denies weakness Endo Denies fatigue and Denies palpitations Physical Exam Vital Signs: Last Vital Signs Pulse 51 06/21/25 11:02 BP 130/70 06/21/25 11:02 BMI result Body Mass Index 40.1 GENERAL APPEARANCE: in no acute distress, pleasant. NECK: no carotid bruit, no jugular venous distention. SKIN: no suspicious lesions, warm and dry. HEART: Systolic murmur with preserved 2nd heart sound, regular rate and rhythm. Bradycardic. LUNGS: clear to auscultation bilaterally. ABDOMEN: soft, nontender. EXTREMITIES: no edema. PERIPHERAL PULSES: equal. NEUROLOGIC: No gross deficits, AAO X 3 Office Procedures EKG Details: Sinus bradycardia 51 beats per minute, rightward axis, QTC 405 milliseconds. [id number], Complete Assessment & Plan Assessment & Plan (1) Essential hypertension: Code(s): I10 - Essential (primary) hypertension Category: Medical (2) Abnormal echocardiogram: Code(s): R93.1 - Abnormal findings on diagnostic imaging of heart and coronary circulation Category: Medical Plan [age] year female who is here for 1st office visit. She had echocardiography done in January 2025 for systolic murmur which showed hyperdynamic left ventricular function with mid cavity obliteration without any obstructive physiology. No systolic anterior motion of mitral valve reported on the echocardiogram. Trace mitral regurgitation noted. IVC was normal in size and was collapsing normally too. She has never had any syncopal episode or dizziness. As mentioned there is no systolic anterior motion or LVOT obstruction noted. She drinks water in her day-to-day life and I have advised her to increase hydration. She is on multiple antihypertensive medications including thiazide diuretics. Usually hyperdynamic function is linked with hypovolemia which can be relative due to chlorthalidone use. In any case currently I have reassured her that there is nothing serious noted on the echocardiogram. I have advised her to keep herself well hydrated especially if she is sick with any fever. Blood pressure is well controlled currently. Continue same medications. She is on clonidine patch and we have to be careful that she does not run out of her clonidine because she may have withdrawal. She will see us back in 6 months. Thank you for allowing me to participate in the care of your patient. Please feel free to contact me if you have any questions. Coding Level of Care Code New Pt Level 4 (96246) Diagnoses Essential hypertension I10 Abnormal echocardiogram R93.1 CPT Codes EKG - CPT: 46365-Tlpcefgnwqgtxbdge, Complete ([id number])
[2025-06-21 11:02] VITALS: BP 130/70; PULSE 51; BMI 40.1
--- OUTSIDE RECORDS SUMMARY | 2025-06-21 13:09 | XMS_ITS | Patient Health Record ---
Author Organization [facility] Address [address] [place] [address] Care Team Providers Care Pipe Liner Name Role Phone RIVAS CHOPRA PA-C Primary Care Provider Ernesto Oconnell [phone] Allergies Allergen (clinical drug ingredient) Drug/Non Drug Allergy documented on EMR Reaction Allergy Type Onset Date Status oxycodone oxyCODONE Unknown Drug Allergy Active acetaminophen Acetaminophen Unknown Drug Allergy Active Results Component Value Reference Range Notes Glucose, Whole Blood Reviewed date:05/22/2025 09:11:58 PM Interpretation: Performing Lab:[facility], [address] [place] [phone] Notes/Report: Glucose, Whole Blood 110 60-115 mg/dL METER # : [id number] Pathology (Not yet reviewed by provider) Interpretation: Performing Lab:[facility], [address] [place] [phone] Notes/Report: Reason For Referral No Information Medications Medication [...] Points 0 Interpretation Negative Section Notes: From [facility] originally Problems Problem Type SNOMED Code ICD Code Onset Dates Problem Status W/U Status Risk Notes Problem Colon cancer screening (544500201) Colon cancer screening (Z12.11) Active confirmed Problem Fatty liver (049435427) Fatty liver (K76.0) Active confirmed Vital Signs Blood pressure diastolic 77 mm Hg 02/23/2025 Height 65 in 02/23/2025 Blood pressure systolic 111 mm Hg 02/23/2025 Weight 237 lbs 02/23/2025 BMI 39.43 kg/m2 02/23/2025 Procedures Procedure Date Ordered Date Performed Result Body Sit e COLONOSCOPY 02/23/2025 N/A Encounters Encounter Location Date Provider Diagnosis [facility] [place] [address] [place] [phone] 05/21/2025 Ernesto Buenrostro [facility] [address] [place] [address] 02/23/2025 Ernesto Buenrostro Colon cancer screening Z12.11 [...] Test Test Name Order Date COLONOSCOPY 02/23/2025 Pathology 05/21/2025 Insurance Providers Payer Name Payer Address Payer Phone Subscriber Number Group Number Insured Name Patient Relationship to Insured Coverage Start Date Coverage End Date [facility] [address] [place] [address] [id number] ORA COOK Self - patient is the insured Medical (General) History Medical History History ICD Code Hypothyroidism NIDDM Hypertension Heart murmur Fatty liver--normal LFT's in 12/2024 Hypercholesterolemia JAIMIE-cpap Denies VA,CVA,Lung disease,renal disease Thalassemia-sees Dr. Sawant Liver Cysts on 2023 U/S Colon cancer screening Z12.11 Neg colonoscopies in 2002 and 2012, neg. Cologuard in 2021 approx Surgical History Surgery Date(Month/Year) Cataracts bilateral Appendectomy C-spine
== END 2025-06-21 11:26 | disposition home or self-care (01) ==
LOC: HO.HCS 10:43
PROVIDERS: PCP Physician Assistant Medical; Visit Provider Internal Medicine Cardiovascular Disease
DX: I10 Essential (primary) hypertension (principal); R93.1 Abnormal findings on diagnostic imaging of heart and coronary circulation
CPT/HCPCS: 93010; 99204

== ENCOUNTER → 2025-06-21 10:42 | Outpatient (BNVA) | payer MEDICARE, SELFPAY | PROVIDERS: PCP Physician Assistant Medical; Visit Provider Internal Medicine Cardiovascular Disease | DX: I10 Essential (primary) hypertension (principal); R93.1 Abnormal findings on diagnostic imaging of heart and coronary circulation | CPT/HCPCS: 93005; 99202 ==

== ENCOUNTER 2025-07-12 11:28 | Outpatient (REF) | payer BC, SELFPAY ==
[2025-07-12 18:27] LABS: Mean Corpuscular HGB Conc 29.4 g/dl (31.0-35.0); Mean Corpuscular Hemoglobin 20.7 pg (27.0-33.0); NRBC Abs Auto 0.000 X10*3/uL (0.0-0.012); NRBC Pct Auto 0.0 /100WBC (0.0-0.2)
[2025-07-12 18:29] LABS: Hematocrit 49.3 % (37.0-47.0); Hemoglobin 14.5 g/dl (12.0-16.0); Mean Corpuscular Volume 70.5 fL (80.0-98.0); Platelet Count 195 X10*3/uL (160-400); Red Blood Count 6.99 X10*6/uL (4.20-5.50); White Blood Count 6.4 X10*3/uL (4.8-10.8)
[2025-07-12 18:34] LABS: PLT ABN DIST 1
[2025-07-12 18:43] LABS: Alanine Aminotransferase 36 U/L (0-31); Albumin Level 4.6 g/dL (3.5-5.0); Alkaline Phosphatase 65 U/L (39-117); Anion Gap 13 (12-20); Aspartate Amino Transferase 26 U/L (5-31); Blood Urea Nitrogen 13 mg/dL (9-16); Calcium 10.1 mg/dL (8.4-10.2); Carbon Dioxide 26 mmol/L (22-29); Chloride 105 mmol/L (96-108); Estimated Glomerular Filt Rate > 60; Potassium 3.9 mmol/L (3.3-5.1); Sodium 140 mmol/L (135-145); Total Protein 7.6 g/dL (6.5-8.0)
== END 2025-07-12 11:29 | disposition home or self-care (01) ==
LOC: HO.WFDLDS 11:28
PROVIDERS: PCP Physician Assistant Medical; Visit Provider Physician Assistant Medical
DX: R73.03 Prediabetes (principal); I10 Essential (primary) hypertension; E78.00 Pure hypercholesterolemia, unspecified; R73.9 Hyperglycemia, unspecified; E66.01 Morbid (severe) obesity due to excess calories; G47.33 Obstructive sleep apnea (adult) (pediatric); F41.9 Anxiety disorder, unspecified; R93.2 Abnormal findings on diagnostic imaging of liver and biliary tract; E03.9 Hypothyroidism, unspecified; Z99.89 Dependence on other enabling machines and devices; Z79.899 Other long term (current) drug therapy
CPT/HCPCS: 36415; 80053; 83036; 84443; 85027

== ENCOUNTER 2025-07-12 11:28 | Outpatient (AMB) | payer BC, SELFPAY ==
--- NOTE | 2025-07-12 11:44 | A.OFFPC_ITS ---
Vital Signs 07/12/25 11:45 Height 5 ft 5 in Weight 243 lb BMI 40.4 BP 138/84 Blood Pressure Location Rt brachial Position Sitting Respiration 14 Pulse 80 Pulse Source Pulse Oximeter Pulse Oximetry (%) 98 Oxygen Delivery Method Room Air Intake Visit Reasons: med review Intake Note: Medication follow up Life Sciences Instructor Required: No Allergies oxycodone (From Percocet) Adverse Reaction (Severe, Verified 07/12/25 11:46) Nausea and Vomiting Medication List - Last Reconciled 07/12/25 by DEIRDRE Jain chlorthalidone 12.5 mg (1/2 x 25 mg) PO DAILY clonidine 1 patch transdermal QWEEK escitalopram oxalate 5 mg PO DAILY fluorometholone 0.1% 0.1 drps ophthalmic (eye) DAILY levothyroxine 50 mcg PO DAILY losartan 100 mg PO DAILY omega-3 fatty acids 500 mg PO DAILY red yeast rice 600 mg PO BID verapamil ER 360 mg PO DAILY vitamin B complex 1 cap PO DAILY Tobacco use date assessed: 07/12/25 Fall risk assessment: No Falls in past year Last assessed Fall Risk: 07/12/25 Dental Screening Dental Screen Date: 04/08/25 HPI HPI Comments History of Present Illness Details This is a 74-year-old female with a past medical history of insulin re sistance, class 2 obesity, JAIMIE on CPAP, prediabetes, hypertension, hyperlipidemia, hypothyroidism, elevated liver enzymes, hepatic steatosis and mild mitral regurgitation presenting for follow up. Prediabetes, morbid obesity-she was previously on Ozempic. She did not lose weight so we attempted to switch to tirzepatide. She is due for an A1c. She has been off Ozempic for a couple of months now. She tried metformin, but it causes nausea and vomiting. She is following a low-carbohydrate diet. She does not like to eat sweets. Her weight is up 3 lb since May. She has a obstructive sleep apnea and hypertension. She cooks her own meals. She is exercising. Hypertension-taking chlorthalidone 12.5 mg daily, clonidine 0.3 mg per 24 hour weekly transdermal patch, losartan 100 mg daily and verapamil extended release 360 mg daily. She denies side effects. Her blood pressure is mildly elevated today, but she is checking at home, and her blood pressure is usually 130/70s. Her anxiety is controlled on Lexapro 5 mg a day. She did not tolerate sertraline. The patient saw general surgery on 09/28/2024 for an incidental finding of a biliary cyst on her recent ultrasound. The plan is to have the ultrasound repeated in 1 year and follow up with General surgery at that time. She saw Gastroenterology for evaluation of elevated liver enzymes an ultrasound showing hepatic steatosis and elastography suggestive of chronic liver disease. She had a colonoscopy on 05/21/2025. There was a single polyp. The patient saw Cardiology on 06/21/2025. She had an echo done January 2025 which showed hyperdynamic left ventricular function with mid cavitary obliteration without any obstructive pathology. Increasing fluids was recommended. Patient seen by Hematology for thalassemia evaluation. Hypothyroidism- compliant with levothyroxine 50 mcg daily. JAIMIE-she is compliant with her CPAP. She is followed by sleep medicine. She reports being up-to-date with immunizations. 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 She had a normal bone density exam July 2024. ROS: Constitutional: No unexplained weight loss, fever, chills, fatigue or night sweats. Eyes: No vision changes, blurry vision, double vision, eye pain, eye redness, eye discharge. Respiratory: No shortness of breath, cough or sputum production. Cardiovascular: No chest pain, chest pressure or chest discomfort. No palpitations or pedal edema.. Neurologic: No headache, dizziness, syncope Physical exam: Constitutional: Alert, in no distress. Head: Normocephalic. Neck: Supple, Full range of motion. No lymphadenopathy. No palpable thyroid masses. Respiratory: Clear to auscultation. Cardiovascular: S1 S2 regular. Systolic murmur. No carotid bruits. Extremities: Warm and well perfused. No clubbing, cyanosis or edema. Stasis dermatitis bilateral lower extremities. Psychiatric: Normal mood and affect [facility] Medical History (Reviewed 06/21/25 @ 11:04 by Yudelka Oviedo [facility]) Biliary cyst Abnormal echocardiogram Routine physical examination Right sciatic notch pain Abnormal CBC Abnormal liver ultrasound Hepatic steatosis Colon cancer screening Mild mitral regurgitation Serum calcium elevated Elevated liver enzymes Heart murmur Hypothyroidism Anxiety Pure hypercholesterolemia Essential hypertension Prediabetes Insulin resistance Morbid obesity JAIMIE (obstructive sleep apnea) Surgical History Hx of hand surgery Hx of hand surgery History of carpal tunnel surgery of right wrist H/O colonoscopy Hx of cataract extraction Hx of cervical discectomy Hx of section Hx of appendectomy Family History Father Alcohol abuse Throat cancer Brother Alcohol abuse Throat cancer Sister Breast cancer Social History (Updated 07/12/25 @ 11:53 by Rima Gutierres CMA) Household Members: Spouse Housing: House Alcohol intake: current Alcohol intake frequency: holidays/special occasions only Comment: One glass of wine Patient Tobacco Use Status: Never used Tobacco e-Cigarette/Vaping Use: Never Used Second Hand Smoke Exposure: No service: No Current occupational status: retired Current occupational exposures/hazards: No Cognitive needs: No Hearing needs: No Vision needs: No Questionnaire Thrive Questionnaire Date Thrive assessed: 08/31/24 I am a: Patient What is your living situation today?: I have a steady place to live Within the past 12 months, did the food you bought not last and you didn't have the money to get more?: Often true Within the past 12 months, did you worry whether your food would run out before you got money to buy more?: Never true Do you have trouble paying for medicines?: No Do you have trouble getting transportation to medical appointments?: No Do you have trouble paying your heating and electricity bill?: No Do you have trouble taking care of your child, family member or friend?: No Do you have trouble with day-to-day activities such as bathing, preparing meals, shopping, managing finances, etc.?: No Are you currently unemployed and looking for a job?: No Are you interested in more education?: No Please select the resources that you would like help with: None Currently or been in a relationship where the following occur: No concerns reported THRIVE Score: 1 AUDIT C Alcohol Use Questionnaire (AUDIT-C) 1. How often do you have a drink containing alcohol?: Never 3. How often do you have six or more drinks on one occasion?: Never Total Score: 0 HUAN-7 AMB Questionnaire HUAN-7 Date HUAN - 7 assessed: 01/04/25 Source: Developed by Drs. Ernesto East, Silke Mendez, Philip Naranjo and colleagues, with an educational kenn from [employer] Physical exam (Primary Care) Vital Signs: Last Vital Signs Pulse 80 07/12/25 11:45 Resp 14 07/12/25 11:45 BP 138/84 07/12/25 11:45 Pulse Ox 98 07/12/25 11:45 Oxygen Delivery Method Room Air 07/12/25 11:45 BMI result Body Mass Index 40.4 Tobacco/Smoking Status: Tobacco use Status Tobacco use date assessed 07/12/25 07/12/25 11:52 Patient Tobacco Use Status Never used Tobacco 07/12/25 11:53 e-Cigarette/Vaping Use Never Used 07/12/25 11:53 Thrive Assessment: Date of Thrive Assessment Date Thrive assessed 08/31/24 07/12/25 11:52 Currently or been in a relationship where the following occur: No concerns reported Coding Level of Care Code Est Pt Level 4 (52998) Complex EM visit Add On G2211 Diagnoses Abnormal CBC R79.89 Abnormal liver ultrasound R93.2 Hypothyroidism, unspecified type E03.9 Hypothyroidism type: unspecified Anxiety F41.9 Pure hypercholesterolemia E78.00 Essential hypertension I10 Prediabetes R73.03 JAIMIE (obstructive sleep apnea) G47.33 Assessment & Plan Assessment & Plan (1) Abnormal CBC: Code(s): R79.89 - Other specified abnormal findings of blood chemistry Category: Medical Plan: Seen by Hematology for thalassemia workup. (2) Abnormal liver ultrasound: Code(s): R93.2 - Abnormal findings on diagnostic imaging of liver and biliary tract Category: Medical Plan: Avoid alcohol. Continue low-cholesterol diet and efforts at weight loss. Evaluated by Gastroenterology. (3) Hypothyroidism: Code(s): E03.9 - Hypothyroidism, unspecified Category: Medical Qualifiers: Hypothyroidism type: unspecified Qualified Code(s): E03.9 - Hypothyroidism, unspecified Plan: Continue treatment with levothyroxine. (4) Anxiety: Code(s): F41.9 - Anxiety disorder, unspecified Category: Medical Plan: Stable on Lexapro. (5) Pure hypercholesterolemia: Code(s): E78.00 - Pure hypercholesterolemia, unspecified Category: Medical Plan: Recommended Mediterranean diet. Avoid smoking. Continue efforts at weight loss. (6) Essential hypertension: Code(s): I10 - Essential (primary) hypertension Category: Medical Plan: Continue current regimen. Continue efforts at weight loss. Avoid caffeine. Follow low-sodium diet. (7) Prediabetes: Code(s): R73.03 - Prediabetes Category: Medical Plan: We discussed appropriate portion sizes and following a low carbohydrate, low sugar diet. Check hemoglobin A1c. She has been off of Ozempic for a couple of months now. She did not tolerate metformin. She has obesity, obstructive sleep apnea and hypertension. Her insurance has been difficult about GLP 1 coverage. May resubmit GLP 1 request pending lab results. (8) JAIMIE (obstructive sleep apnea): Comment: cpap used Code(s): G47.33 - Obstructive sleep apnea (adult) (pediatric) Category: Medical Plan: Continue CPAP. Plan Schedule physical exam in 6 months. Orders: Orders Complete Blood Count no Diff Today E78.00 - Pure hypercholesterolemia, unspecified, E88.819 - Insulin resistance, unspecified, I10 - Essential (primary) hypertension, R73.03 - Prediabetes Hemoglobin A1c Today E78.00 - Pure hypercholesterolemia, unspecified, E88.819 - Insulin resistance, unspecified, I10 - Essential (primary) hypertension, R73.03 - Prediabetes, R73.9 - Hyperglycemia, unspecified TSH reflex Free T4 Today E78.00 - Pure hypercholesterolemia, unspecified, E88.819 - Insulin resistance, unspecified, I10 - Essential (primary) hypertension, R73.03 - Prediabetes Comprehensive Met. Panel Today E78.00 - Pure hypercholesterolemia, unspecified, E88.819 - Insulin resistance, unspecified, I10 - Essential (primary) hypertension, R73.03 - Prediabetes
[2025-07-12 11:45] VITALS: BP 138/84; PULSE 80; RESP 14; O2SAT 98; BMI 40.4
== END 2025-07-12 12:35 | disposition home or self-care (01) ==
LOC: HO.HMCFM 11:29
PROVIDERS: PCP Physician Assistant Medical; Visit Provider Physician Assistant Medical
DX: R79.89 Other specified abnormal findings of blood chemistry (principal); R93.2 Abnormal findings on diagnostic imaging of liver and biliary tract; E03.9 Hypothyroidism, unspecified; F41.9 Anxiety disorder, unspecified; E78.00 Pure hypercholesterolemia, unspecified; I10 Essential (primary) hypertension; R73.03 Prediabetes; G47.33 Obstructive sleep apnea (adult) (pediatric)

== ENCOUNTER 2025-08-11 12:34 | Outpatient (AMB) | payer BC, SELFPAY ==
--- OUTSIDE RECORDS SUMMARY | 2025-05-21 06:30 | XMS_ITS ---
Author Organization [facility] Address [address] [place] [address] Care Team Providers Care Varnishing Unit Tool Setter Name Role Phone RIVAS CHOPRA PA-C Primary Care Provider Ernesto Oconnell [phone] REASON FOR VISIT screening Encounters Encounter Location Date Provider Diagnosis [facility] [place] Outpatient [address] [place] [phone] 05/21/2025 Ernesto Buenrostro Plan Of Treatment No Information Progress Notes * DAVID COOKEDOB:[birth year] (74 yo F)Acc No.[id number]:05/21/2025 COLON WITH MAC Patient: Ruthy WEST LARRY Provider: Cierra Buenrostro MD :1950 A ge:74 Y S ex:Female Date:05/21/2025 Address:[address] [place], [place] [phone] Pcp:RIVAS CHOPRA PA-C Subjective: * Chief Complaints: * S creening * The named appointment provid er may or may not be the originator of this progress note, and it is not deemed complete until electronically signed by the appointment provider. Sign off status: Pending * Provider: Cierra Buenrostro MD Date: 0 05/21/2025 Generated for Conor mclain/Urmila/eTransmitting on: 1 2024 04:26 PM EST
[2025-08-11 12:53] VITALS: BP 140/72; PULSE 57; O2SAT 98; BMI 40.9
--- NOTE | 2025-08-11 12:53 | MHC.OFFWIV ---
Intake Vital Signs 08/11/25 12:53 Height 5 ft 5 in Weight 246 lb BMI 40.9 BP 140/72 H Blood Pressure Location Lt brachial Position Sitting Pulse 57 Pulse Source Pulse Oximeter Pulse Oximetry (%) 98 Oxygen Delivery Method Room Air Intake Visit Reasons: EP Pain in right leg Intake Note: Patient present c/o sharp right buttock pain that radiates down right leg into foot x1 week & worsening. Patient Tobacco Use Status: Never used Tobacco Allergies oxycodone (From Percocet) Adverse Reaction (Severe, Verified 08/11/25 12:57) Nausea and Vomiting HPI HPI Comments History of Present Illness Details Patient is a 74yo F who presents with for R leg pain Ongoing since last week She denies any trauma recently or falls Pain is in R gluteal region which radiates down leg Down back and side of leg Sitting makes worse Better when standing She took tylenol without relief Now 06/04 No urine or bowel complaints or incontinence No numbness or saddle parathesias No abdominal pain She states + similar pain in past She also notes R heel pain that has been present for a similar amount of time. States when she steps down on foot she feels like there is something in her heel Pain in heel does not radiate up calf or leg No known FB in foot. Denies numbness associated PFSH Medical History Biliary cyst Abnormal echocardiogram Routine physical examination Right sciatic notch pain Abnormal CBC Abnormal liver ultrasound Hepatic steatosis Colon cancer screening Mild mitral regurgitation Serum calcium elevated Elevated liver enzymes Heart murmur Hypothyroidism Anxiety Pure hypercholesterolemia Essential hypertension Prediabetes Insulin resistance Morbid obesity JAIMIE (obstructive sleep apnea) Surgical History Hx of hand surgery Hx of hand surgery History of carpal tunnel surgery of right wrist H/O colonoscopy Hx of cataract extraction Hx of cervical discectomy Hx of section Hx of appendectomy Family History Father Alcohol abuse Throat cancer Brother Alcohol abuse Throat cancer Sister Breast cancer Social History (Updated 07/12/25 @ 11:53 by Rima Gutierres CMA) Household Members: Spouse Housing: House Alcohol intake: current Alcohol intake frequency: holidays/special occasions only Comment: One glass of wine Patient Tobacco Use Status: Never used Tobacco e-Cigarette/Vaping Use: Never Used Second Hand Smoke Exposure: No service: No Current occupational status: retired Current occupational exposures/hazards: No Cognitive needs: No Hearing needs: No Vision needs: No Review of Systems Const Denies chills, Denies fever(s) and Denies weakness Card Denies dyspnea Resp Denies dyspnea GI Denies abdominal pain Musc Reports back pain, Denies numbness, Denies tingling and Reports other (R heel pain) Skin/Breast Denies erythema, Denies rash and Denies sores Neuro Denies focal weakness, Denies numbness, Denies tingling, Denies paresthesias and Denies weakness Physical Exam Exam Exam: General: Non-toxic, NAD. Speaking full sentences. Skin: Warm dry throughout. Legs are symmetrical in size and shape bilaterally No edema noted to RLE noted. No gluteal rashes, lesions or ecchymosis R heel has no puncture, erythema or visualized FB. No obvious edema or ecchymosis Eye: EOMI Respiratory: CTA bilaterally. No wheezes, rales or rhonchi Cardiac: RRR. No murmur. No calf tenderness. RLE DP pulse intact MSK: No midline spinal ttp. + ttp R gluteal/sciatic region. + full ROM at R hip and knee. + ttp to R inferior calcaneus. No achilles ttp. Neurology: Alert. No aphasia or facial droop. Gait without abnormality Psych: Good mood and affect Vital Signs: Last Vital Signs Pulse 57 08/11/25 12:53 BP 140/72 H 08/11/25 12:53 Pulse Ox 98 08/11/25 12:53 Oxygen Delivery Method Room Air 08/11/25 12:53 BMI result Body Mass Index 40.9 Assessment & Plan Assessment & Plan (1) Sciatic leg pain: Code(s): M54.30 - Sciatica, unspecified side Plan: Patient seen and evaluated. SYmptoms consistent with sciatric She declined steroid Will give muscle relaxant; lethargy. No alcohol or driving Warm compress, Gentle ROM and PT referral Patient gave verbal understanding and had no additional questions or concerns at time of discharge All questions answered (2) Heel pain: Code(s): M79.673 - Pain in unspecified foot Qualifiers: Laterality: right Qualified Code(s): M79.671 - Pain in right foot Plan: xray ordered: i viewed large calcaneus spur which most likely is cause of her pain. Ortho referral given (3) Calcaneal spur: Code(s): M77.30 - Calcaneal spur, unspecified foot Qualifiers: Laterality: right Qualified Code(s): M77.31 - Calcaneal spur, right foot Plan: pertinent xray finding. Ortho referral given Orders: Orders PT Evaluation and Treatment Today M54.30 - Sciatica, unspecified side, M79.673 - Pain in unspecified foot XR calcaneus RT min 2V Today M79.673 - Pain in unspecified foot Referrals Orthopedics Referral M77.30 - Calcaneal spur, unspecified foot Medications: New methocarbamol 500 mg PO BID PRN 10 tabs 0RF muscle spasm Coding Level of Care Code Est Pt Level 3 (30683) Diagnoses Sciatic leg pain M54.30 Pain of right heel M79.671 Laterality: right Calcaneal spur of right foot M77.31 Laterality: right
--- OUTSIDE RECORDS SUMMARY | 2025-08-11 16:26 | XMS_ITS | Patient Health Record ---
Author Organization [facility] Address [address] [place] [address] Care Team Providers Care Bottle Capper Name Role Phone RIVAS CHOPRA PA-C Primary Care Provider Ernesto Oconenll [phone] Allergies Allergen (clinical drug ingredient) Drug/Non Drug Allergy documented on EMR Reaction Allergy Type Onset Date Status acetaminophen Acetaminophen Unknown Drug Allergy Active oxycodone oxyCODONE Unknown Drug Allergy Active Results Component Value Reference Range Flag Notes Glucose, Whole Blood Reviewed date:05/22/2025 09:11:58 PM Interpretation: Performing Lab:[facility], [address] [place] [id number] Notes/Report: Glucose, Whole Blood 110 60-115 mg/dL N DE TER #: [id number] Pathology (Not yet reviewed by provider) Interpretation: Performing Lab:[facility], [address] [place] [phone] Notes/Report: Reason For Referral No Information Medications Medication SIG (Take, Route, Frequency, Duration) Notes Start Date End Date Status Losartan Potassium A ctive Fluorometholone Acti ve Levothyroxine Sodium Active cloNIDine Active Escitalopram Oxalate Active Mounjaro 2.5 MG/0.5ML Solution Auto-injector as directed Subcutaneous weekly 02/23/2025 Active Chlorthalidone Activ e Verapamil HCl ER Act erin Vitamin B Complex Ac tive Red Yeast Rice Activ e Tirzepatide Active Social History Tobacco Use: Social History Observation Description Date Details (start date - stop date) Never Smoker NA - NA Social History Drug/Alcohol: Social Info Question Answer Notes AUDIT-C (Standard) Did you have a drink containing alcohol in the past year? No Points 0 Interpretation Negative Tobacco Use: Social Info Question Answer Notes Tobacco Control (Standard) Tobacco use: Nonsmoker Additional Details Category Social Info Options Details Miscellaneous: Marital status: Occupation: retired Section Notes: From [facility] originally Problems Problem Type SNOMED Code ICD Code Onset Dates Problem Status W/U Status Risk Notes Problem Colon cancer screening (828236308) Colon cancer screening (Z12.11) Active confirmed Problem Fatty liver (790383971) Fatty liver (K76.0) Active confirmed Vital Signs Blood pressure diastolic 77 mm Hg 02/23/2025 Height 65 in 02/23/2025 Blood pressure systolic 111 mm Hg 02/23/2025 Weight 237 lbs 02/23/2025 BMI 39.43 kg/m2 02/23/2025 Procedures Procedure Date Ordered Date Performed Result Body Sit e COLONOSCOPY 02/23/2025 N/A Encounters Encounter Location Date Provider Diagnosis [facility] Outpatient [address], [place] [phone] 05/21/2025 Ernesto Buenrostro [facility] [address] [place] [address] 02/23/2025 Ernesto Buenrostro Colon cancer screening Z12.11 [...] Insured Coverage Start Date Coverage End Date [facility] [employer] [address] [place] [address] [id number] JOYCEORA Self - patient is the insured Medical (General) History Medical History History ICD Code Hypothyroidism NIDDM Hypertension Heart murmur Fatty liver--normal LFT's in 12/2024 Hypercholesterolemia JAIMIE-cpap Denies [place],CVA,Lung disease,renal disease Thalassemia-sees Dr. Sawant Liver Cysts on 2023 [place] Colon cancer screening Z12.11 Neg colonoscopies in 2002 and 2012, neg. Cologuard in 2021 approx Surgical History Surgery Date(Month/Year) C-spine Appendectomy Cataracts bilateral
== END 2025-08-11 13:52 | disposition home or self-care (01) ==
PROVIDERS: PCP Physician Assistant Medical; Visit Provider Physician Assistant
DX: M54.30 Sciatica, unspecified side (principal); M79.671 Pain in right foot; M77.31 Calcaneal spur, right foot

== ENCOUNTER 2025-08-11 12:34 | Outpatient (REF) | payer BC, SELFPAY ==
--- NOTE | ~2025-08-11 | XR_ITS ---
EXAMINATION: XR CALCANEUS, RIGHT CLINICAL INFORMATION: M79.673 - Pain in unspecified foot COMPARISON: None available. TECHNIQUE: Lateral and axial views of the right calcaneus were obtained. FINDINGS: The calcaneus is intact. There are moderate plantar and small dorsal calcaneal spurs. The subtalar joints appear normal. No fracture or bone lesions. No soft tissue abnormalities. XR/XR calcaneus RT min 2V IMPRESSION: Moderate plantar and small dorsal calcaneal spurs. Otherwise normal right calcaneus. Electronically signed by: Osiel Fairchild MD 08/11/2025 01:52 PM EST
== END 2025-08-11 12:35 | disposition home or self-care (01) ==
LOC: HO.HMGCX 12:34
PROVIDERS: PCP Physician Assistant Medical; Visit Provider Physician Assistant
DX: M77.31 Calcaneal spur, right foot (principal); M54.31 Sciatica, right side
CPT/HCPCS: 73650

== ENCOUNTER → 2025-08-11 13:33 | Outpatient (BNV) | payer BC, SELFPAY | PROVIDERS: PCP Physician Assistant Medical; Visit Provider Radiology Diagnostic Radiology | DX: M77.31 Calcaneal spur, right foot (principal) | CPT/HCPCS: 73650 ==

== ENCOUNTER 2025-08-20 09:48 | Outpatient (REF) | payer BC, SELFPAY ==
--- OUTSIDE RECORDS SUMMARY | 2025-05-21 06:30 | XMS_ITS ---
Author Organization [facility] Address [address] [place] [address] Care Team Providers Care Shear Operator Helper Name Role Phone RIVAS CHOPRA PA-C Primary Care Provider Ernesto Oconnell [phone] REASON FOR VISIT screening Encounters Encounter Location Date Provider Diagnosis [facility] [place] [address] [place] [phone] 05/21/2025 Ernesto Buenrostro Plan Of Treatment No Information Progress Notes * DAVID C[birth year]EDOB:[birth year] (74 yo F)Acc No.[id number]:05/21/2025 COLON WITH MAC Patient: Ruthy WEST LARRY Provider: Cierra Buenrostro MD :1950 A ge:74 Y S ex:Female Date:05/21/2025 Address:[address] [place], [place] [id number] Pcp:RIVAS CHOPRA PA-C Subjective: * Chief Complaints: * S creening * The named appointment provid er may or may not be the originator of this progress note, and it is not deemed complete until electronically signed by the appointment provider. Sign off status: Pending * Provider: Cierra Buenrotsro MD Date: 0 05/21/2025 Generated for Conor mclain/Urmila/eTransmitting on: 1 10/21/2024 09:52 AM EST
--- NOTE | ~2025-08-20 | US_ITS ---
EXAMINATION: US ABDOMEN LIMITED HISTORY: K83.5 - Biliary cyst TECHNIQUE: Real-time grayscale ultrasound imaging of the right upper quadrant was performed and images were reviewed. COMPARISON: Comparison is made with the prior examination dated 07/22/2024. FINDINGS: Liver: The liver is mildly enlarged. The liver demonstrates increased echotexture, consistent with steatosis. Multiple cysts are noted including a 7.6 x 7.5 x 7.5 cm cyst in the left lobe contain low-level internal echoes, and 2 cysts in the right lobe measuring 6.1 x 7.2 x 7.5 cm and 4.9 x 7.2 x 7.0 cm. These cysts also contain low-level internal echoes. There is normal hepatopedal flow in the portal vein. Gallbladder and biliary tree: The gallbladder is unremarkable, without evidence of calculi, wall thickening, or pericholecystic fluid. There is no sonographic Khoury sign. The common bile duct is normal in caliber measuring 3 mm in diameter. Right Kidney: The right kidney measures 13.0 cm in length. The right kidney is unremarkable, without evidence of masses, hydronephrosis, or calculi. Pancreas: The pancreatic head, neck, and body are unremarkable. The pancreatic tail is obscured by bowel gas. Abdominal aorta and inferior vena cava: The visualized portions of the abdominal aorta and inferior vena cava are normal in caliber. There is no free fluid in the right upper quadrant. US/US abdomen limited IMPRESSION: Hepatic steatosis. Multiple hepatic cysts as described. Electronically signed by: Ernesto Burris MD 08/20/2025 10:28 AM RICHARD
--- OUTSIDE RECORDS SUMMARY | 2025-08-20 09:52 | XMS_ITS | Patient Health Record ---
Author Organization [facility] Address [address] [place] [phone] Care Team Providers Care Puzzle Assembler Name Role Phone RIVAS CHOPRA PA-C Primary Care Provider Ernesto Oconnell [phone] Allergies Allergen (clinical drug ingredient) Drug/Non Drug Allergy documented on EMR Reaction Allergy Type Onset Date Status acetaminophen Acetaminophen Unknown Drug Allergy Active oxycodone oxyCODONE Unknown Drug Allergy Active Results Component Value Reference Range Flag Notes Pathology (Not yet reviewed by provider) Interpretation: Performing Lab:[facility], [address] [place] [id number] Notes/Report: Glucose, Whole Blood Reviewed date:05/22/2025 09:11:58 PM Interpretation: Performing Lab:[facility], [address] [place] [phone] Notes/Report: Glucose, Whole Blood 110 60-115 mg/dL [facility] #: [id number] Reason For Referral No Information Medications Medication [...] Marital status: Occupation: retired Section Notes: From [employer] originally Problems Problem Type SNOMED Code ICD Code Onset Dates Problem Status W/U Status Risk Notes Problem Colon cancer screening (308796962) Colon cancer screening (Z12.11) Active confirmed Problem Fatty liver (537434845) Fatty liver (K76.0) Active confirmed Vital Signs Blood pressure diastolic 77 mm Hg 02/23/2025 Height 65 in 02/23/2025 Blood pressure systolic 111 mm Hg 02/23/2025 Weight 237 lbs 02/23/2025 BMI 39.43 kg/m2 02/23/2025 Procedures Procedure Date Ordered Date Performed Result Body Sit e COLONOSCOPY 02/23/2025 N/A Encounters Encounter Location Date Provider Diagnosis [facility] Outpatient [address] [place], [place] [phone] 05/21/2025 Ernesto Buenrostro [facility] [address] [place] [address] 02/23/2025 Ernesto Buenrostro Colon cancer screening Z12.11 [...] Insured Coverage Start Date Coverage End Date [facility] [address] [place] [address] [id number] JOYCEORA Self - patient is the insured Medical (General) History Medical History History ICD Code Hypothyroidism NIDDM Hypertension Heart murmur Fatty liver--normal LFT's in 12/2024 Hypercholesterolemia JAIMIE-cpap Denies [place],CVA,Lung disease,renal disease Thalassemia-sees Dr. Sawant Liver Cysts on 2023 [place] Colon cancer screening Z12.11 Neg colonoscopies in 2002 and 2012, neg. Cologuard in 2021 approx Surgical History Surgery Date(Month/Year) C-spine Appendectomy Cataracts bilateral
== END 2025-08-20 09:49 | disposition home or self-care (01) ==
LOC: HO.US 09:48
PROVIDERS: PCP Physician Assistant Medical; Visit Provider Physician Assistant Medical
DX: K83.5 Biliary cyst (principal)
CPT/HCPCS: 76705

== ENCOUNTER → 2025-08-20 09:50 | Outpatient (BNV) | payer BC, SELFPAY | PROVIDERS: PCP Physician Assistant Medical; Visit Provider Radiology Diagnostic Radiology | DX: K83.5 Biliary cyst (principal); K76.0 Fatty (change of) liver, not elsewhere classified; K76.89 Other specified diseases of liver | CPT/HCPCS: 76705 ==